=== PATIENT | male | born 1980 | race Caucasian/White ===

== ENCOUNTER 2019-05-26 18:26 | Emergency (ER) | payer BC ==
--- NOTE | 2019-05-26 18:56 | ED Physician Documentation ---
PD HPI LOWER EXT INJURY - Stated complaint Stated Complaint: RT KNEE AND ANKLE PX - Chief complaint Chief Complaint: Ext Problem - History obtained from History obtained from: Patient - History of Present Illness PD HPI LOW EXT INJURY LOCATION: Right, Lower leg, Ankle Type of injury: Twist Where injury occurred: Home Timing - onset: How many weeks ago (1) Timing - duration: Weeks (1) Timing - details: Abrupt onset Pain level max: 6 Pain level now: 5 Improved by: Rest, Ice, Immobilization Worsened by: Moving, Palpating Associated symptoms: No: Weakness, Numbness, Tingling, Swelling Contributing factors: No: Anticoagulated Recently seen: Clinic (Seen in the clinic for same, states not improving. States his right ankle twisted inward and he has having pain up by his knee all the way down to his ankle. States swollen as well. Worse with movement and better with rest) Review of Systems Constitutional: denies: Fever, Chills, Myalgias Ears: denies: Ear pain Nose: denies: Rhinorrhea / runny nose, Congestion Throat: denies: Sore throat Cardiac: denies: Chest pain / pressure Respiratory: denies: Cough GI: denies: Vomiting, Diarrhea : denies: Dysuria, Frequency Skin: denies: Rash Musculoskeletal: denies: Neck pain, Back pain Neurologic: denies: Headache PD PAST MEDICAL HISTORY - Past Medical History Past Medical History: No - Past Surgical History Past Surgical History: Yes - Present Medications Home Medications: Ambulatory Orders Medication Instructions Recorded Confirmed Azithromycin [Zithromax] 250 mg PO DAILY #6 tablet 08/23/15 - Allergies Allergies/Adverse Reactions: Allergies Allergy/AdvReac Type Severity Reaction Status Date / Time No Known Drug Allergies Allergy Verified 05/26/19 18:34 - Living Situation Living Arrangement: reports: At home - Social History Does the pt smoke?: Yes Smoking Status: Current every day smoker Does the pt drink ETOH?: Yes Does the pt have substance abuse?: No - Immunizations Immunizations are current?: Yes PD ED PE NORMAL - Vitals Vital signs reviewed: Yes - General General: Alert and oriented X 3, No acute distress - HEENT HEENT: Moist mucous membranes - Neck Neck: Supple, no meningeal sign - Derm Derm: Warm and dry - Extremities Extremities: Other (Tender to palpation over the proximal fibula of the right lower extremity as well of the right ankle. Neurovascular intact. Mild s welling. Normal examination of the foot.) - Neuro Neuro: Alert and oriented X 3 Results - Vitals Vitals: Vital Signs - 24 hr 05/26/19 18:29 Temperature 36.9 C Heart Rate 88 Respiratory 17 Rate Blood Pressure 150/90 H O2 Saturation 98 Oxygen O2 Source Room air - Rads (name of study) R tib fib xray Radiology: Prelim report reviewed, EMP read contemporaneously, See rad report (Fractured proximal fibular metaphysis. No other fractures are identified. ) R ankle xray Radiology: Prelim report reviewed, EMP read contemporaneously, See rad report (Diffuse soft tissue swelling, no ankle fracture. ) Procedures - Splint (location) R LE Splint applied by: Physician, Tech Type of splint: Fiberglass, Long leg, Posterior Other: Patient tolerated well, No complications, Neurovascular intact, Crutches provided PD MEDICAL DECISION MAKING - ED course Complexity details: reviewed results, re-evaluated patient, considered differential, d/w patient ED course: 39-year-old male with a proximal fibula fracture on x-ray. Placed in a long-leg posterior splint. Neurovascularly intact. Will provide crutches for home. He will follow-up with orthopedics for further care. Patient counseled regarding signs and symptoms for which I believe and urgent re-evaluation would be necessary. Patient with good understanding of and agreement to plan and is comfortable going home at this time This document was made in part using voice recognition software. While efforts are made to proofread this document, sound alike and grammatical errors may occur. Departure - Departure Disposition: 01 Home, Self Care Clinical Impression: Fracture of proximal end of fibula Qualifiers: Encounter type: initial encounter Fracture type: closed Fracture morphology: unspecified fracture morphology Laterality: right Qualified Code(s): S82.831A - Other fracture of upper and lower end of right fibula, initial encounter for closed fracture Condition: Good Instructions: ED Fx Lower Ext Follow-Up: [facility] [Provider Group] - Within 1 week Comments: Return if you worsen. Follow-up with orthopedics for further care. You can use Motrin or Tylenol as needed for pain. You are to be nonweightbearing. Forms: Activity restrictions
--- NOTE | 2019-05-26 19:31 | XRAY Report ---
Reason: fall, ankle pain Procedure Date: 05/26/2019 Accession Number: [id number] / [id number] Procedure: XR - Ankle 3 View RT CPT Code: Final Report FULL RESULT: EXAM: RIGHT ANKLE RADIOGRAPHY EXAM DATE: 05/26/2019 06:51 PM. CLINICAL HISTORY: Fall, ankle pain. COMPARISON: LEG LOWER RT 05/26/2019 6:50 PM. TECHNIQUE: 3 views. FINDINGS: Bones: Tiny posterior calcaneal spur. No fractures or bone lesions. Base of the fifth metatarsal is excluded from the lateral view. Joints: Normal. No effusion. No subluxations. The ankle mortise is normally aligned. Soft Tissues: Diffuse soft tissue swelling. IMPRESSION: Diffuse soft tissue swelling, no ankle fracture. RADIA
--- NOTE | 2019-05-26 19:33 | XRAY Report ---
Reason: fall, leg pain Procedure Date: 05/26/2019 Accession Number: [id number] / [id number] Procedure: XR - Tib/Fib RT CPT Code: Final Report FULL RESULT: EXAM: RIGHT TIBIA/FIBULA RADIOGRAPHY EXAM DATE: 05/26/2019 06:50 PM. CLINICAL HISTORY: Fall, leg pain. COMPARISON: None. TECHNIQUE: 2 views. FINDINGS: Bones: Slightly comminuted fracture of the proximal fibular metaphysis, minimal displacement. Tibia is intact. Joints: The visualized knee and ankle joints are normal. No effusions. Soft Tissues: Mild soft tissue swelling. IMPRESSION: Fractured proximal fibular metaphysis. No other fractures are identified. RADIA
[2019-05-26 20:29] VITALS: BP 140/88
== END 2019-05-26 20:28 | disposition home or self-care (01) ==
LOC: ED 18:26
DX: S82.831A Other fracture of upper and lower end of right fibula, initial encounter for closed fracture (principal); X50.1XXA Overexertion from prolonged static or awkward postures, initial encounter; W18.39XA Other fall on same level, initial encounter; Y92.009 Unspecified place in unspecified non-institutional (private) residence as the place of occurrence of the external cause; F17.200 Nicotine dependence, unspecified, uncomplicated
CPT/HCPCS: 29505

== ENCOUNTER 2020-01-09 12:08 | Emergency (ER) | payer BC ==
[2020-01-09] MEDS ORDERED: HYDROcod/ACETAM 5/325 MG TABLET PO STA (12:56)
--- NOTE | 2020-01-09 12:58 | ED Physician Documentation ---
PD HPI UPPER EXT INJURY - Stated complaint Stated Complaint: SHOULDER PAIN, FALL - Chief complaint Chief Complaint: Ext Problem - History obtained from History obtained from: Patient - History of Present Illness Location: Left, Shoulder Type of injury: Fall Where injury occurred: Home Timing - onset: Yesterday Timing - details: Abrupt onset Pain level max: 8 Pain level now: 8 Improved by: Rest, Ice, Immobilization Worsened by: Moving, Palpating Associated symptoms: Swelling, Discolored (Ecchymosis). No: Weakness, Numbness, Tingling - Additonal information Additional information: 39-year-old male presents to the emergency department stating that he was getting out of the shower yesterday when he slipped fell and landed hitting the edge of the tub on his left shoulder. States the pain is gradually worsened since that time. Worse with movement and better with rest. Has not taken anything for pain. No head, neck, back pain. No numbness or tingling. No difficulty breathing. Review of Systems Ten Systems: 10 systems reviewed and negative Constitutional: denies: Fever, Chills Respiratory: denies: Cough GI: denies: Nausea, Vomiting, Diarrhea Skin: denies: Rash Musculoskeletal: denies: Neck pain, Back pain Neurologic: denies: Focal weakness, Numbness, Headache, Head injury PD PAST MEDICAL HISTORY - Past Medical History Past Medical History: No - Past Surgical History Past Surgical History: Yes - Present Medications Home Medications: Ambulatory Orders Medication Instructions Recorded Confirmed Azithromycin [Zithromax] 250 mg PO DAILY #6 tablet 08/23/15 Oxycodone HCl/Acetaminophen 1 - 2 each PO Q6H PRN #14 tablet 01/09/20 [Percocet 5-325 mg Tablet] - Allergies Allergies/Adverse Reactions: Allergies Allergy/AdvReac Type Severity Reaction Status Date / Time No Known Drug Allergies Allergy Verified 01/09/20 12:30 - Living Situation Living Arrangement: reports: At home - Social History Does the pt smoke?: Yes Smoking Status: Current every day smoker Does the pt drink ETOH?: Yes Does the pt have substance abuse?: No - Immunizations Immunizations are current?: Yes - POLST Patient has POLST: No PD ED PE NORMAL - Vitals Vital signs reviewed: Yes - General General: Alert and oriented X 3, No acute distress - HEENT HEENT: Atraumatic, PERRL, Moist mucous membranes - Neck Neck: Supple, no meningeal sign, No bony TTP - Cardiac Cardiac: RRR - Respiratory Respiratory: No respiratory distress, Clear bilaterally - Derm Derm: Warm and dry - Extremities Extremities: Other - Neuro Neuro: Alert and oriented X 3 - Psych Psych: Normal mood, Normal affect - Free text exam Free text exam: Left shoulder - Tenderness to palpation over the AC joint. There is swelling and ecchymosis at the site as well. No tenderness over the proximal clavicle. Does have some tenderness around the glenohumeral joint, exam limited secondary to pain. Motion limited secondary to pain. Neurovascular intact. No crepitus over the left-sided ribs. No rib tenderness. 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 Discussed the case and reviewed the images with orthopedics, Dr. Morgan who recommends placing the patient in a sling, pain control and follow-up in clinic. Patient is neurovascular intact including the axillary nerve. Patient counseled regarding signs and symptoms for which I believe and urgent re-evaluation would be necessary. Patient with good understanding of and agreement to plan and is comfortable going home at this time This document was made in part using voice recognition software. While efforts are made to proofread this document, sound alike and grammatical errors may occur. Comminuted, impacted fracture of the left humeral neck, with moderate to prominent displacement of fracture fragments. No glenohumeral dislocation is detected. Departure - Departure Disposition: 01 Home, Self Care Clinical Impression: Humerus fracture Qualifiers: Encounter type: initial encounter Humerus Location: proximal Fracture type: closed Fracture alignment: displaced Laterality: left Condition: Good Instructions: ED Fx Upper Ext Follow-Up: [facility] [Provider Group] - Within 1 week Prescriptions: Oxycodone HCl/Acetaminophen [Percocet 5-325 mg Tablet] 1 - 2 each PO Q6H PRN #14 tablet PRN Reason: pain Comments: Return if you worsen. Follow-up with orthopedics this week for repeat evaluation. You are to stay in the sling. I spoke with Dr. Morgan from orthopedics today Do not drink alcohol or drive while on narcotic pain medicine. Note that many narcotic pain relievers also contain tylenol/acetaminophen. Please ensure that your total dose of acetaminophen from all sources does not exceed 3 grams (3000mg) per day. You may constipated on this medication, take a stool softener such as "Colace" twice a day while you are on it. Also recommend a mozh-iqu-njckump laxative such as senna or MiraLAX any day that you do not have a bowel movement. If you received narcotic pain medication in the emergency department, do not drive or operate machinery for the next 24 hours. Forms: Activity restrictions
--- NOTE | 2020-01-09 13:34 | XRAY Report ---
PROCEDURE: Shoulder 3 View LT INDICATIONS: trauma TECHNIQUE: 3 views of the shoulder were acquired. COMPARISON: None FINDINGS: Bones: There is an impacted, comminuted fracture of the left humeral neck. There is moderate to prom inent displacement of the fracture fragments. No glenohumeral dislocation can be seen. No additional fractures are detected. The visualized ribs appear intact. No suspicious lytic or blast ic lesions are seen. Soft tissues: No suspicious soft tissue calcifications. The visualized lung demonstrates a normal a ppearance. IMPRESSION: Comminuted, impacted fracture of the left humeral neck, with moderate to prominent displacement of fr acture fragments. No glenohumeral dislocation is detected. Reviewed by: Ck Tang MD on 01/09/2020 12:33 PM RISSA Approved by: Ck Tang MD on 01/09/2020 12:33 PM RISSA Station ID: [id number]
[2020-01-09] MEDS ORDERED: oxyCODONE 5 MG TABLET PO STA (14:24)
--- NOTE | 2020-01-09 14:26 | XRAY Report ---
PROCEDURE: Shoulder 1 View LT INDICATIONS: ortho requests repeat scapular Y TECHNIQUE: 1 view of the shoulder was acquired. COMPARISON: Correlation is made with the prior shoulder radiographs, 01/09/2020 FINDINGS: Bones: On this repeat scapular Y view, the left humeral head appears mildly dislocated posteriorly in relation to the glenoid fossa. A moderately displaced, comminuted, impacted humeral neck fracture is again seen. Soft tissues: No suspicious soft tissue calcifications. IMPRESSION: On this repeat scapular Y view, the left humeral head appears mildly dislocated posterio rly relation to the glenoid fossa. If it would be helpful for clinical management decision making, please consider a dedicated shoulder CT for further evaluation. Reviewed by: Ck Tang MD on 01/09/2020 1:25 PM RISSA Approved by: Ck Tang MD on 01/09/2020 1:25 PM RISSA Station ID: [id number]
[2020-01-09 14:36] VITALS: BP 157/92
== END 2020-01-09 14:49 | disposition home or self-care (01) ==
LOC: ED 12:08
DX: S42.202A Unspecified fracture of upper end of left humerus, initial encounter for closed fracture (principal); W01.198A Fall on same level from slipping, tripping and stumbling with subsequent striking against other object, initial encounter; Y93.E1 Activity, personal bathing and showering; Y92.002 Bathroom of unspecified non-institutional (private) residence as the place of occurrence of the external cause; F17.200 Nicotine dependence, unspecified, uncomplicated
CPT/HCPCS: 73020; 73030; 99283; 99284; A9270

== ENCOUNTER 2020-01-14 11:05 | Outpatient (CLI) | payer BC | END 2020-01-14 23:59 | disposition home or self-care (01) | LOC: LAB.R 11:05 | PROVIDERS: ATTEND Orthopaedic Surgery | DX: Z01.818 Encounter for other preprocedural examination (principal); Z20.828 Contact with and (suspected) exposure to other viral communicable diseases ==

== ENCOUNTER 2020-01-19 06:47 | Day surgery (SDC) | payer BC ==
[2020-01-19] MEDS ORDERED: PROPOFOL 200 MG/20 ML VIAL IVP ONE (06:48)
[2020-01-19] MEDS ORDERED: ALBUTEROL 6.7 GM INHALER INH ONE (06:48)
[2020-01-19] MEDS ORDERED: ONDANSETRON 4 MG/2 ML VIAL IVP ONE (06:48)
[2020-01-19] MEDS ORDERED: fentaNYL 100 MCG/2 ML VIAL IVP ONE (06:48)
[2020-01-19] MEDS ORDERED: TRANEXAMIC ACID 1,000 MG/10 ML VIAL IV ONE (06:48)
[2020-01-19] MEDS ORDERED: KETOROLAC 30 MG/ML VIAL IVP ONE (06:48)
[2020-01-19] MEDS ORDERED: ePHEDrine 50 MG/ML VIAL IVP ONE (06:48)
[2020-01-19] MEDS ORDERED: HYDROmorphone 1 MG/ML CARPUJECT IVP ONE (06:48)
[2020-01-19] MEDS ORDERED: MIDAZOLAM 2 MG/2 ML VIAL IVP ONE (06:48)
[2020-01-19] MEDS ORDERED: ROCURONIUM 50 MG/5 ML VIAL IVP ONE (06:48)
[2020-01-19] MEDS ORDERED: ACETAMINOPHEN 1,000 MG/100 ML 100 ML IV ONE ×2 (06:48→07:23)
[2020-01-19] MEDS ORDERED: LACTATED RINGERS 1,000 ML IV ONE ×2 (06:57→14:07)
[2020-01-19] MEDS ORDERED: GABAPENTIN 400 MG CAPSULE ONE (07:22)
[2020-01-19] MEDS ORDERED: CELECOXIB 100 MG CAPSULE PO ONE (07:23)
[2020-01-19] MEDS ORDERED: CEFAZOLIN SODIUM IN 0.9 % NACL 2 GM/100 ML BAG IV ONE (07:23)
[2020-01-19 07:43] LABS: BASOPHILS # (AUTO) 0.1 10^3/uL (0.0-0.1); BASOPHILS % (AUTO) 1.6 %; EOSINOPHILS # (AUTO) 0.2 10^3/uL (0.0-0.7); EOSINOPHILS % (AUTO) 3.9 %; HGB - HEMOGLOBIN 13.4 g/dL (14.0-18.0); LYMPHOCYTES # (AUTO) 1.3 10^3/uL (1.5-3.5); LYMPHOCYTES % (AUTO) 25.5 %; MEAN CORPUSCULAR HGB CONC 33.3 g/dL (32.0-36.0); MEAN PLATELET VOLUME 9.8 fL (7.4-11.4); MONOCYTES # (AUTO) 0.7 10^3/uL (0.0-1.0); MONOCYTES % (AUTO) 14.7 %; NEUTROPHILS # (AUTO) 2.6 10^3/uL (1.5-6.6); NEUTROPHILS % (AUTO) 53.9 %; PLT - PLATELET COUNT 298 10^3/uL (130-450); RED BLOOD COUNT 3.94 10^6/uL (4.70-6.10); RED CELL DISTRIBUTION WIDTH 12.5 % (12.0-15.0); WHITE BLOOD COUNT 4.9 x10^3/uL (4.8-10.8)
--- NOTE | 2020-01-19 07:45 | ANESTHESIA ---
Pre-Anesthesia VS, & Labs - Diagnosis Left displaced proximal humerus fracture - Procedure ORIF left humerus Vital Signs: Temp Pulse Resp BP Pulse Ox 37.1 C 73 12 123/82 H 97 01/19/20 06:57 01/19/20 06:57 01/19/20 06:57 01/19/20 06:57 01/19/20 06:57 Height: 5 ft 10 in Weight (kg): 97.9 kg Body Mass Index: 30.9 BMI Classification: Obese - NPO >8 hours - Lab Results Current Lab Results: Laboratory Tests 01/19/20 07:17: POC Whole Bld Glucose 93 Home Medications and Allergies Home Medications: Ambulatory Orders Ibuprofen [Motrin] 600 mg PO Q6H PRN 01/17/20 lisinopriL [Lisinopril] 5 mg PO DAILY 01/17/20 Ibuprofen [Motrin] 600 mg PO Q6H PRN 01/17/20 lisinopriL [Lisinopril] 5 mg PO DAILY 01/17/20 Allergies/Adverse Reactions: Allergies Allergy/AdvReac Type Severity Reaction Status Date / Time No Known Drug Allergies Allergy Verified 01/09/20 12:30 Anes History & Medical History - Anesthetic History Family history of Anesthesia Complications: Denies Family history of Malignant Hyperthermia: Denies - Medical History Cardiovascular: reports: Hypertension Pulmonary: reports: Asthma (childhood), Sleep apnea (snores) Gastrointestinal: reports: None Urinary: reports: None Neuro: reports: Head injury (Post traumatic brain disorder) Musculoskeletal: reports: None Endocrine/Autoimmune: reports: None Blood Disorders: reports: None Skin: reports: None Smoking Status: Current every day smoker Psychosocial: reports: Depression, Anxiety, Cannabis (daily), Other (PTSD) Exam General: Alert, Oriented x3, Cooperative, No acute distress Dental: WNL, Other (chipped front tooth) Mouth Openin Fingerbreadth Neck Mobility: Normal Mallampati classification: II Thyromental Distance: greater than 6 cm Respiratory: Lungs clear, Normal breath sounds, No respiratory distress, No accessory muscle use Cardiovascular: Regular rate, Normal S1, Normal S2, No murmurs Mental/Cognitive Status: Alert/Oriented X3, Normal for patient Plan Anesthesia Type: Supraclavicular Block (left) Regional Block: Per Surgeon's request for Post Op pain control Consent for Procedure(s) Verified and Reviewed: Yes Code Status: Attempt Resuscitation ASA classification: 2-Mild systemic disease Is this case an emergency?: No
[2020-01-19] MEDS ORDERED: ONDANSETRON 4 MG/2 ML VIAL IVP PRN (13:34)
[2020-01-19] MEDS ORDERED: MORPHINE 2 MG/ML CARPUJECT IVP PRN (13:34)
[2020-01-19] MEDS ORDERED: NALOXONE 0.4 MG/ML VIAL IVP PRN (13:34)
[2020-01-19] MEDS ORDERED: HYDROmorphone 0.5 MG/0.5 ML SYRINGE IVP PRN (13:34)
[2020-01-19] MEDS ORDERED: fentaNYL 100 MCG/2 ML VIAL IVP PRN (13:34)
[2020-01-19] MEDS ORDERED: ATROPINE ABBOJECT 1 MG/10 ML SYRINGE IVP PRN (13:34)
--- NOTE | 2020-01-19 13:54 | OPERATIVE REPORT ---
Operative Report - General Procedure Date: 01/19/20 Planned Procedure: Open reduction internal fixation proximal humerus left shoulder Pre-Op Diagnosis: Displaced proximal humerus fracture left shoulder Procedure Performed: Open reduction internal fixation proximal humerus left shoulder using Stephens nephew proximal humeral 3-hole locking plate Post Op Diagnosis: Same as preoperative diagnosis. - Procedure Note Primary Surgeon: Renny Ibarra MD Secondary Surgeon: NIA Garza Anesthesia Provider: Carlos Rosenthal Anesthesia Technique: General ET tube, Regional block Estimated Blood Loss (mL): 200 Indications: This is a 39-year-old who took a fall 12 days ago at home when he slipped trying to get out of the bathroom and landed on his left shoulder. He was seen approximately a week after injury orthopedic clinic. His x-rays showed a displaced 2 part fracture. 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 He had tenderness, limited motion to left shoulder, no neurovascular deficit. Findings: The fracture was transverse and was relatively high in the neck of the humerus with a medial spike of bone extending into the metaphysis distally. Is the greater tuberosity was displaced as well and this was not visualized as well on preop x-rays. The rotator cuff was intact. The biceps tendon was pierced by a spike of bone from the distal shaft fragment.The glenohumeral joint was stable. Complications: None noted - Other Other Information/Narrative: The patient was brought to theOperating room table and was placed in a beachchair positioner at about 40 degrees. Care was taken to protect his head and put the neck in a neutral position with the appropriate facemask. Sequential compression device was applied to both lower extremities. Bolsters were placed beneath his thighs. The left shoulder and upper extremity were prepped and draped in a sterile manner in the usual fashion. The left upper extremity was draped free. A Parker stand had been covered with a sterile drape. The C arm was covered with sterile drape as well.We tried to rehearse C arm positioning to obtain AP and axillary as well as rotational views before the prepping and draping. A timeout procedure was performed by the entire operating room team and all were in agreement. A deltopectoral incision was made beginning at the clavicle, extending lateral to the coracoid onto the deltoid insertion. The cephalic vein was identified proximally, protected and retracted medially. The subacromial space was mobilized by abducting the arm and retracting the deltoid with a Bello retractor. The clavipectoral fascia had already been released and the coracoid muscles were retracted medially with the pectoralis. The shaft fracture fragment had been rotated with the spike protruding through the biceps tendon. Stay sutures were placed into the rotator cuff using #1 Vicryl. 6 strands of suture replaced through the cuff to help mobilize the head. Longitudinal traction external rotation and manipulation of the head traction sutures were performed. Because the fracture was relatively high in transverse it was hard to place K wires directly perpendicular to the fracture. For this reason a temporary small plate was applied anteriorly and this stabilized the fracture enough so I could rotate the shoulder and apply the lateral positions proximal humeral locking plate. The fracture seem to impact. The fracture seem to be stable with temporary fixation. The head fragment seemed to be on radiographs somewhat medial to shaft. There was some callus formation about the greater tuberosity and this was easily freed. Obtaining a good lateral or axillary was difficult. The proximal end of the plate was placed distal to the rotator cuff and tuberosity. K wires were inserted to the proximal end of the plate and were within the head. Once the proximal anatomic humeral plate had been applied, the anterior temporary plate fixation was remove d.The C arm was used intermittently throughout procedure. Locking screws were placed into the head and nonlocking screws into the shaft. When inserting the screws screws for the head, only the lateral cortex was drilled and a depth gauge was used to palpate the bone proximally. Most of the screw lengths were about 5 mm less than the actual depth gauge measurement. There seemed to be good fixation clinically. The fracture was stable and there was no motion at the fracture site with range of motion and rotation. The x-ray showed satisfactory but not anatomic alignment. The screws were well within the head. There was no block to motion or crepitus to motion of the shoulder. The biceps was tenodesed to the pectoralis with #1 Vicryl. The wound was irrigated with saline and also dilute Betadine. The deltopectoral interval was closed with 0 Vicryl, the subcutaneous tissue with 2-0 Vicryl and the skin with a running 3-0 Monocryl subcuticular suture. Dermabond was applied and a silver impregnated dressing also utilized. A sling was applied. He received 2 g of Ancef before the incision and 2 g of Ancef during the procedure. He tolerated the procedure well. A physician printing assistant was utilized during this procedure to help with positioning, draping, retraction and to facilitate reduction and fixation of the fracture.
[2020-01-19] MEDS ORDERED: LACTATED RINGERS 1,000 ML IV SCH (14:00)
[2020-01-19] MEDS ORDERED: HYDROcod/ACETAM 5/325 MG TABLET PO PRN (14:15)
[2020-01-19] MEDS ORDERED: HYDROcod/ACETAM 10 MG/325 MG TABLET PO PRN (14:15)
[2020-01-19] MEDS ORDERED: KETOROLAC 15 MG/ML VIAL IVP STA (14:15)
--- NOTE | 2020-01-19 14:19 | ANESTHESIA POST OP EVALUATION ---
Anesthesia Post Eval - Post Anesthesia Eval Vitals: Last Vital Signs Temp 37.3 C 01/19/20 14:04 Pulse 101 H 01/19/20 14:10 Resp 12 01/19/20 14:10 BP 127/81 H 01/19/20 14:10 Pulse Ox 95 01/19/20 14:10 CV Function Including HR & BP: positive: Stable Pain Control: positive: Satisfactory Nausea & Vomiting: positive: Negative Mental Status: positive: Baseline Respiratory Status: Airway Patent Hydration Status: Satisfactory Anesthesia Complications: positive: None
[2020-01-19] MEDS ORDERED: HYDROcod/ACETAM 5/325 MG TABLET ONE (14:56)
[2020-01-19 15:08] VITALS: BP 104/64
--- NOTE | 2020-01-19 15:42 | XRAY Report ---
PROCEDURE: OR C-Arm Procedure INDICATIONS: ORIF PROXIMAL HUMERUS TECHNIQUE: 3 intraoperative fluoroscopic images of left shoulder/proximal humerus were obtained. COMPARISON: Shoulder radiograph dated 01/09/2020. FINDINGS: Intraoperative fluoroscopic images of left shoulder shows internal fixation of previously noted impac saniya proximal humeral neck fracture. IMPRESSION: Fluoroscopy guidance was provided intraoperatively for internal fixation of proximal humeral shaft. Reviewed by: Rafael Tee MD on 01/19/2020 2:41 PM AKAUDREY Approved by: Rafael Tee MD on 01/19/2020 2:41 PM AKDT Station ID: [id number]
== END 2020-01-19 06:48 | disposition home or self-care (01) ==
LOC: SDS 06:47
PROVIDERS: ATTEND Orthopaedic Surgery
PROC: 0PSD0ZZ Reposition Left Humeral Head, Open Approach (ICD-10-PCS; principal; 2020-01-19 08:00)
DX: S42.222A 2-part displaced fracture of surgical neck of left humerus, initial encounter for closed fracture (principal); W18.2XXA Fall in (into) shower or empty bathtub, initial encounter; Y93.E1 Activity, personal bathing and showering; Y92.002 Bathroom of unspecified non-institutional (private) residence as the place of occurrence of the external cause; I10 Essential (primary) hypertension; G47.30 Sleep apnea, unspecified; F17.210 Nicotine dependence, cigarettes, uncomplicated; F41.9 Anxiety disorder, unspecified; F43.10 Post-traumatic stress disorder, unspecified; Z72.89 Other problems related to lifestyle; Z87.820 Personal history of traumatic brain injury
CPT/HCPCS: 23615; 85025; A9270; J0131; J0690; J1170; J7120; J7613

== ENCOUNTER 2020-02-25 08:00 | Outpatient (CLI) | payer BC ==
--- NOTE | 2020-02-25 16:24 | XRAY Report ---
PROCEDURE: Shoulder 3 View LT INDICATIONS: LEFT HUMERUS FRACTURE TECHNIQUE: 4 views of the shoulder were acquired. COMPARISON: Left shoulder radiographs dated 01/09/2020 FINDINGS: Bones: Postsurgical changes are seen from fixation of the previously seen proximal humeral fracture w ith metallic plate and screw construct. A lucent fracture line is visualized at the humeral neck. Per iosteal reaction and callus formation is seen at the posterior medial aspect of the fracture line. Soft tissues: No suspicious soft tissue calcifications. IMPRESSION: Postsurgical changes from fixation of a previously seen proximal humeral fracture with p rogressive healing changes. Reviewed by: Rodrigue Belle MD on 02/25/2020 4:22 PM PST Approved by: Rodrigue Belle MD on 02/25/2020 4:22 PM PST Station ID: [id number]
== END 2020-02-25 23:59 | disposition home or self-care (01) ==
LOC: DI.WCP 08:00
PROVIDERS: ATTEND Orthopaedic Surgery
DX: S42.222D 2-part displaced fracture of surgical neck of left humerus, subsequent encounter for fracture with routine healing (principal)

== ENCOUNTER 2020-04-24 11:33 | Outpatient (CLI) | payer BC ==
--- NOTE | 2020-04-24 12:27 | XRAY Report ---
PROCEDURE: Shoulder 3 View LT INDICATIONS: 2 PART DISPLACED FX OF NECK OF L HUMERUS TECHNIQUE: 4 views of the shoulder were acquired. COMPARISON: 01/09/2020 . FINDINGS: Bones: Prior internal fixation of proximal humeral shaft and humeral head is seen with near anatomic shoulder alignment. No gross hardware loosening or failure. Healing at comminuted proximal humeral fr acture site is seen. No new fracture or dislocation. No suspicious bony lesions. Visualized ribs oksana ear intact. Soft tissues: No suspicious soft tissue calcifications. IMPRESSION: Healing proximal humeral shaft/head fracture with near anatomic shoulder alignment. No g ross hardware complication. Reviewed by: Rafael Tee MD on 04/24/2020 12:25 PM PST Approved by: Rafael Tee MD on 04/24/2020 12:25 PM PST Station ID: [id number]
== END 2020-04-24 23:59 | disposition home or self-care (01) ==
LOC: DI.N 11:33
PROVIDERS: ATTEND Physician Assistant
DX: S42.302D Unspecified fracture of shaft of humerus, left arm, subsequent encounter for fracture with routine healing (principal)

== ENCOUNTER 2021-03-30 14:09 | Outpatient (CLI) | payer BC | END 2021-03-30 23:59 | disposition home or self-care (01) | LOC: LAB.N 14:09 | PROVIDERS: ATTEND Family Medicine | DX: R05.9 Cough, unspecified (principal); Z20.822 Contact with and (suspected) exposure to COVID-19 | CPT/HCPCS: 87275; 87276 ==

== ENCOUNTER 2021-08-04 08:00 | Outpatient (CLI) | payer BC ==
[2021-08-04 16:58] LABS: BASOPHILS # (AUTO) 0.1 10^3/uL (0.0-0.1); BASOPHILS % (AUTO) 1.4 %; EOSINOPHILS # (AUTO) 0.1 10^3/uL (0.0-0.7); HCT - HEMATOCRIT 44.2 % (42.0-52.0); HGB - HEMOGLOBIN 14.9 g/dL (14.0-18.0); LYMPHOCYTES # (AUTO) 1.8 10^3/uL (1.5-3.5); LYMPHOCYTES % (AUTO) 35.1 %; MEAN CORPUSCULAR HEMOGLOBIN 34.2 pg (27.0-31.0); MEAN CORPUSCULAR HGB CONC 33.7 g/dL (32.0-36.0); MEAN CORPUSCULAR VOLUME 101.4 fL (80.0-94.0); MEAN PLATELET VOLUME 10.3 fL (7.4-11.4); MONOCYTES # (AUTO) 0.4 10^3/uL (0.0-1.0); MONOCYTES % (AUTO) 7.8 %; NEUTROPHILS # (AUTO) 2.7 10^3/uL (1.5-6.6); NEUTROPHILS % (AUTO) 54.3 %; PLT - PLATELET COUNT 229 10^3/uL (130-450); RED BLOOD COUNT 4.36 10^6/uL (4.70-6.10); RED CELL DISTRIBUTION WIDTH 13.2 % (12.0-15.0)
[2021-08-04 17:08] LABS: ALBUMIN 4.4 g/dL (3.2-5.5); ALBUMIN/GLOBULIN RATIO 1.2 (1.0-2.2); BILIRUBIN,TOTAL 0.5 mg/dL (0.2-1.0); CREATININE 0.6 mg/dL (0.6-1.2); TOTAL PROTEIN 8.1 g/dL (6.7-8.2)
== END 2021-08-04 08:01 | disposition home or self-care (01) ==
LOC: LAB.N 08:00
PROVIDERS: ATTEND Physician Assistant Medical
DX: R55 Syncope and collapse (principal)
CPT/HCPCS: 36415; 80053; 84443; 85025

== ENCOUNTER 2021-08-04 13:22 | Outpatient (CLI) | payer BC ==
--- NOTE | 2021-08-04 17:05 | XRAY Report ---
PROCEDURE: Chest 2 View X-Ray INDICATIONS: COUGH TECHNIQUE: 2 view(s) of the chest. COMPARISON: Correlation is made with left shoulder plain films, 04/24/2020 FINDINGS: Surgical changes and devices: Cervical change of the left proximal humerus is partially seen.. Lungs and pleura: No pleural effusions or pneumothorax. Lungs are clear. Mediastinum: Mediastinal contours are normal. Heart size is normal. Bones and chest wall: No suspicious bony abnormalities. Soft tissues appear unremarkable. IMPRESSION: Clear lungs, without infiltrates. Reviewed by: Ck Tang MD on 08/04/2021 4:04 PM RISSA Approved by: Ck Tang MD on 08/04/2021 4:04 PM RISSA Station ID: [id number]
== END 2021-08-04 13:23 | disposition home or self-care (01) ==
LOC: DI.N 13:22
PROVIDERS: ATTEND Physician Assistant Medical
DX: R05.9 Cough, unspecified (principal); R55 Syncope and collapse
CPT/HCPCS: 36415; 80053; 84443; 85025

== ENCOUNTER 2025-03-31 15:30 | Inpatient (IN) ==
--- OUTSIDE RECORDS SUMMARY | 2025-03-31 15:40 | EXTERNAL MEDICAL SUMMARY RPT | Continuity of Care Document ---
Author Organization [place] Address [address] [address] Phone Allergies and Intolerances date description facility reaction severity 2024-09-22 10:00 [id number]^No Known Drug Allergies^^No Known Drug Allergies^^allergy.id [facility] (no reaction) (no severity) 2025-02-23 10:00 [id number]^No Known Drug Allergies^^No Known Drug Allergies^^allergy.id [facility] (no reaction) (no severity) Problems date description facility 2025-02-23 09:14 Pain in right leg [employer] [facility] 2025-02-23 09:14 Elevated blood-press ure reading, without diagnosis of hypertension [facility] 2025-03-15 16:[address] [facility] 2025-03-15 16:13 Low back pain, unspecified [employer] 2025-03-15 16:13 Pain in thoracic spine [facility] 2025-03-15 16:13 Paresthesia of skin [facility] 2025-03-15 16:13 Difficulty in walking, not else where classified [facility] 2025-03-15 16:13 Apraxia [facility] 2025-03-15 16:[address] [facility] 2025-03-15 16:13 Personal history of traumatic b rain injury [facility] 2025-03-15 16:[address] [facility] 2025-03-15 16:14 Low back pain, unspecified [employer] 2025-03-15 16:14 Pain in thoracic spine [facility] 2025-03-15 16:14 Paresthesia of skin [facility] 2025-03-15 16:14 Difficulty in walking, not else where classified [facility] 2025-03-15 16:14 Apraxia [facility] 2025-03-15 16:14 Weakness [facility] 2025-03-15 16:14 Personal history of traumatic b rain injury [facility] 2025-03-16 09:18 Cervicalgia [facility] 2025-03-16 09:18 Low back pain, unspecified [facility] 2025-03-16 09:18 Pain in thoracic spine [facility] 2025-03-16 09:18 Paresthesia of skin [facility] 2025-03-16 09:18 Difficulty in walking, not else where classified [facility] 2025-03-16 09:18 Apraxia [facility] 2025-03-16 09:18 Weakness [facility] 2025-03-16 09:18 Personal history of traumatic b rain injury [facility] 2025-03-28 10:08 Other abnormality of red blood cells [facility] 2025-03-28 10:08 Elevation of levels of liver tr ansaminase levels [facility] Social History date description facility
--- NOTE | 2025-03-31 15:57 | ED Physician Documentation ---
History of Present Illness Stated complaint Stated Complaint: CONFUSION, SLURRING Chief complaint Chief Complaint: Neuro History obtained from History obtained from: Patient and Family Additonal information Additional information: 45-year-old gentleman presents accompanied by son by private vehicle. He has a history of what sounds like pretty severe alcoholism and TBI with intermittent speech issues and unsteadiness on his feet pain of chronically. He says 2 weeks ago, his son says about 5 or 6 days ago he quit drinking. He says he was doing fine for the first couple of days but since then for the last few days has had severe slurred speech, is picking at things, confused, hallucinating, cannot walk due to unsteadiness and is jaundiced. Meds/Allgy Home Medications Ambulatory Orders Medication Instructions Recorded Confirmed ibuprofen 600 mg tablet 600 mg PO Q6H PRN Pain 01/1604/10/24 Held on 02/23/25. Instructions: Per Patient lisinopril 5 mg tablet 5 mg PO DAILY 01/17/2001/18 Held on 02/23/25. Instructions: Per Patient oxycodone 5 mg tablet 5 mg PO Q4-6H Pain #20 tabs 01/19/20 Held on 02/23/25. Instructions: Per Patient metoprolol succinate 50 mg 50 mg PO DAILY #30 tabs 04/10/24 tablet,extended release 24 hr Held on 02/23/25. Instructions: Per Patient potassium chloride 20 mEq 20 meq PO BID #10 tabs 04/0604/10/24 tablet,extended release(part/cryst) Held on 02/23/25. Instructions: Per Patient diclofenac potassium 50 mg tablet 50 mg PO TID PRN monica n #30 tabs 02/23/25 02/23/25 Allergies Allergies Allergy/AdvReac Type Severity Reaction Status Date / Time No Known Drug Allergies Allergy Verified 03/31/25 15:46 PFSH Active Problems All Active Problems (Updated 03/31/25 @ 17:00 by Orville Gaona MD) Acute alcoholic hepatitis (Acute) Hypomagnesemia (Acute) Hepatic encephalopathy (Acute) Elevated blood pressure reading (Acute) Lower extremity pain, right (Acute) Movement disorder (Acute) Leg cramp (Acute) Hypertension (Acute) Humerus fracture (Acute) Fracture of proximal end of fibula (Acute) Tonsillitis (Acute) Sciatica (Acute) Medical History Medical History TBI (traumatic brain injury) Social History Social History Smoking Status: Former smoker How many cigarettes a day do you smoke? (20 cigarettes=1 Pk): 2 Second hand tobacco smoke exposure: Yes Do you dip or chew tobacco?: No Do you vape?: No Living arrangement: At home Do you feel safe in your home environment?: Yes History of physical, verbal, emotional, or financial abuse?: No ETOH Use: Frequency: Occasional POLST Patient has POLST: No Exam Exam Vital Signs: Vital Signs x48h Temp Pulse Resp BP Pulse Ox 03/31/25 16:40 94 18 122/92 H 95 03/31/25 16:33 89 18 122/92 H 97 03/31/25 16:10 102 H 19 97 03/31/25 15:41 98.3 C H 120 H 18 129/91 H 96 Constitutional normal general appearance and no apparent distress He is alert and oriented. He has pretty significantly slurred and garbled speech which is hard to understand much of the history is from the son. He is somewhat agitated and hyperdynamic and tremulous. Eyes He has scleral icterus and has nystagmus horizontally and vertically. Respiratory breath sounds equal bilaterally, normal respiratory effort and clear to auscultation bilaterally Cardiovascular Tachycardic but regular without murmur Gastrointestinal Fullness in the right upper quadrant consistent with hepatomegaly but nontender Neurology Slurred speech and garbled speech, seems alert and oriented though. Tremulous and does have asterixis. Results Vitals Vitals: Vital Signs - 24 hr 03/31/25 15:41 03/31/25 16:10 03/31/25 16:33 Temperature 98.3 C H Temperature Source Oral Pulse Rate 120 H 102 H 89 Respiratory Rate 18 19 18 Blood Pressure 129/91 H 122/92 H O2 Saturation 96 97 97 O2 Source Room air Room air Room air Pain Intensity 0 6 5 03/31/25 16:40 Temperature Temperature Source Pulse Rate 94 Respiratory Rate 18 Blood Pressure 122/92 H O2 Saturation 95 O2 Source Room air Pain Intensity 5 Oxygen O2 Source Room air Labs Labs: Laboratory Tests 03/31/25 03/31/25 16:00 16:34 WBC 7.7 RBC 4.35 L Hgb 14.9 Hct 42.5 MCV 97.7 H MCH 34.3 H MCHC 35.1 RDW 12.7 Plt Count 43 L MPV 12.7 H Neut # (Auto) 5.9 Lymph # (Auto) 0.7 L Bosque # (Auto) 1.0 Eos # (Auto) 0.0 Baso # (Auto) 0.0 Absolute Nucleated RBC 0.00 Nucleated RBC % 0.0 Sodium 130 L Potassium 2.9 L Chloride 86 L Carbon Dioxide 23 Anion Gap 21.0 H BUN 8 Creatinine 0.7 Estimated GFR (MDRD) 122 Glucose 108 H Calcium 9.6 Magnesium 1.1 L Total Bilirubin 6.9 H AST 153 H ALT 86 H Alkaline Phosphatase 133 H Ammonia 80.1 H* Total Protein 7.6 Albumin 4.3 Globulin 3.3 Albumin/Globulin Ratio 1.3 Lipase 44 Acetaminophen 0.1 Ethyl Alcohol < 10.0 Rads (name of study) CT of the head is without acute disease: Relevant Findings:: Final report received and EMP independent interpretation of test (NAD) PD Medical Decision Making ED course ED course: 45-year-old gentleman presents with slurred speech, hyperdynamic, jaundice, and asterixis. He has a history of alcoholism. This could be alcohol withdrawal but I am actually more suspicious of hepatic encephalopathy given the constellation of findings. Workup demonstrates normal head CT, CBC notable mostly for thrombocytopenia worse than priors, CMP showing hypokalemia, hyponatremia, hypomagnesemia and jaundice. He has a significantly elevated ammonia level. On reexamination after 1 mg of Ativan he did look a little better. I ordered IV supplementation of magnesium and potassium and then subsequently lactulose. Spoke with Dr. Ellison for admission at 4:58 PM. INR pending on admission so I do not know his MELD score nor his discriminant function. The patient and family are counseled as to the diagnosis and need for admission. This document was made in part using voice recognition software, while efforts are made to proofread this document, sound alike an grammatical errors may occur. Discharge Plan Discharge Patient Disposition: 66 [facility] DC/Xfer Condition: Serious Clinical Impression: Hepatic encephalopathy, Hypomagnesemia, Acute alcoholic hepatitis Prescriptions: No Action lisinopril 5 MG tablet 5 mg PO DAILY ibuprofen 600 MG tablet 600 mg PO Q6H PRN (Reason: Pain) oxycodone 5 MG tablet 5 mg PO Q4-6H Qty: 20 0RF Rx Instructions: Take 1 tablet by mouth every 4-6 hours as needed for breakthrough pain potassium chloride 20 mEq tablet,ER particles/crystals 20 meq PO BID Qty: 10 2RF metoprolol succinate 50 mg tablet extended release 24 hr 50 mg PO DAILY Qty: 30 2RF diclofenac potassium 50 mg tablet 50 mg PO TID PRN (Reason: pain) Qty: 30 0RF Print Language: Irish
[2025-03-31 16:20] LABS: HCT - HEMATOCRIT 42.5 % (42.0-52.0); HGB - HEMOGLOBIN 14.9 g/dL (14.0-18.0); MEAN PLATELET VOLUME 12.7 fL (7.4-11.4); NRBC ABSOLUTE COUNT (AUTO) 0.00 x10^3/uL; NUCLEATED RED BLOOD CELLS AUTO 0.0 /100WBC; PLT - PLATELET COUNT 43 10^3/uL (130-450); RED CELL DISTRIBUTION WIDTH 12.7 % (12.0-15.0)
[2025-03-31] MEDS: SODIUM CHLORIDE 0.9% 1,000 ML IV STA (16:29)
[2025-03-31] MEDS: THIAMINE 100 MG/1 ML 2 ML MDV IVP STA (16:31)
--- NOTE | 2025-03-31 16:31 | CT Report ---
PROCEDURE: CT Head WO INDICATIONS: ams TECHNIQUE: CT of the head was performed, without intravenous contrast. Reformats: Coronal and sagittal. For radiation dose reduction, the following was used: automated exposure control, adjustment of mA and/or kV according to patient size. COMPARISON: None. FINDINGS: Image quality: Diagnostic. CSF spaces: Basal cisterns are patent. No extra-axial fluid collections. Ventricles are normal in size and shape. Brain: No midline shift. No intracranial mass effect or hemorrhage. Ackerman- white matter interface is normal. Skull and face: Calvarium and visualized facial bones are intact, without suspicious lesions. Sinuses: Visualized sinuses and mastoids are clear. IMPRESSION: No acute intracranial pathology. Reviewed by: Rafael Tee MD on 03/31/2025 4:28 PM PST Approved by: Rafael Tee MD on 03/31/2025 4:28 PM PST Station ID: [id number]
[2025-03-31] MEDS: LORazepam 2 MG/ML VIAL IVP STA (16:32)
[2025-03-31 16:36] LABS: CARBON DIOXIDE - CO2 23 mmol/L (21-32)
[2025-03-31 16:41] LABS: ETOH - ETHANOL < 10.0 mg/dL
[2025-03-31 16:44] LABS: ALT ALANINE AMINOTRANSFERASE 86 IU/L (10-60); AST ASPARTATE AMINOTRANSFERASE 153 IU/L (10-42); BUN - BLOOD UREA NITROGEN 8 mg/dL (6-20); CREATININE 0.7 mg/dL (0.6-1.3); GFR - MDRD 122 (>89)
[2025-03-31] MEDS: POTASSIUM CHLOR 10 MEQ/100 ML 10 MEQ/100 ML BAG IV STA (16:53)
[2025-03-31] MEDS: MAGNESIUM SULFATE 2 GRAM 2 GM/50 ML BAG IV ONE (16:54)
[2025-03-31 17:03] LABS: INR 1.4 (0.8-1.2); PT - PROTHROMBIN TIME 15.1 secs (9.9-12.6)
[2025-03-31 17:12] LABS: GLUCOSE, URINE (UA) NEGATIVE (NEGATIVE); KETONES,URINE (UA) 40 mg/dL (NEGATIVE); OCCULT BLOOD,URINE NEGATIVE (NEGATIVE)
--- OUTSIDE RECORDS SUMMARY | 2025-03-31 17:31 | EXTERNAL MEDICAL SUMMARY RPT | Continuity of Care Document ---
Author Organization [place] Address [address] [address] Phone Allergies and Intolerances date description facility reaction severity 2024-09-22 10:00 [id number]^No Known Drug Allergies^^No Known Drug Allergies^^allergy.id [facility] (no reaction) (no severity) 2025-02-23 10:00 [id number]^No Known Drug Allergies^^No Known Drug Allergies^^allergy.id XO1 (no reaction) (no severity) 2025-03-31 10:00 [id number]^No Known Drug Allergies^^No Known Drug Allergies^^allergy.id [facility] (no reaction) (no severity) Problems date description facility 2025-02-23 09:14 Pain in right leg [facility] 2025-02-23 09:14 Elevated blood-press ure reading, without diagnosis of hypertension [facility] 2025-03-15 16:13 Cervicalgia [facility] 2025-03-15 16:13 Low back pain, unspecified [employer] 2025-03-15 16:13 Pain in thoracic spine [facility] 2025-03-15 16:13 Paresthesia of skin [facility] 2025-03-15 16:13 Difficulty in walking, not else where classified [facility] 2025-03-15 16:13 Apraxia [facility] 2025-03-15 16:13 Weakness [facility] 2025-03-15 16:13 Personal history of traumatic b rain injury [facility] 2025-03-15 16:14 Cervicalgia [facility] 2025-03-15 16:14 Low back pain, unspecified [facility] 2025-03-15 16:14 Pain in thoracic spine [facility] 2025-03-15 16:14 Paresthesia of skin [facility] 2025-03-15 16:14 Difficulty in walking, not else where classified [facility] 2025-03-15 16:14 Apraxia [facility] 2025-03-15 16:14 Weakness [facility] 2025-03-15 16:14 Personal history of traumatic b rain injury [facility] 2025-03-16 09:18 Cervicalgia [facility] 2025-03-16 09:18 Low back pain, unspecified [facility] 2025-03-16 09:18 Pain in thoracic spine [facility] 2025-03-16 09:18 [facility] 2025-03-16 09:18 Difficulty in walking, not else where classified [facility] 2025-03-16 09:18 Apraxia [facility] 2025-03-16 09:18 Weakness [facility] 2025-03-16 09:18 Personal history of traumatic b rain [facility] 2025-03-28 10:08 Other abnormality of red blood cells [facility] 2025-03-28 10:08 Elevation of levels of liver tr ansaminase levels [employer] Results/Labs test date facility value unit notes Result panel 1 ETOH - ETHANOL 2025-03-31 16:00 [facility] 10.0 mg/dl Blood Alcohol Levels Level Sporadic Drinkers Chronic drinkers 100 mg/dL Legally intoxicated* Minimal signs 200-250 mg/dL Alertness lost, Effort needed to becoming lethargic maintain emotional and motor control 300-350 mg/dL Stupor to coma Drowsy and slow >500 mg/dL Possible Coma *The legal definition of intoxication varies. This assy is for medical decision making only. As of October 2022 testing method has changed, this may include reference ranges. NUCLEATED RED BLOOD CELLS AUTO 2025-03-31 16:00 [facility] 0.0 /100wbc (missing) BASOPHILS # (AUTO) 2025-03-31 16:00 XO1 0.0 10 3/ul (missing) EOSINOPHILS # (AUTO) 2025-03-31 16:00 XO1 0.0 10 3/ul (missing) NRBC ABSOLUTE COUNT (AUTO) 2025-03-31 16:00 XO1 0.00 x10 3/ul (missing) ACETAMINOPHEN 2025-03-31 16:00 XO1 0.1 ug/ml Acetaminophen Therapeutic concentration 10-30 ug/mLHepatotoxicity concentrations - >150 ug/mL at 4hr after ingestion >75 ug/mL at 8hr after ingestion >40 ug/mL at 12hr after ingestion As of October 2022 testing method has changed, this may include reference ranges. LYMPHOCYTES # (AUTO) 2025-03-31 16:00 XO1 0.7 10 3/ul (missing) CREATININE 2025-03-31 16:00 XO1 0.7 mg/dl As of October 2022 test ing method has changed, this may include reference ranges. MONOCYTES # (AUTO) 2025-03-31 16:00 XO1 1.0 10 3/ul (missing) MAGNESIUM 2025-03-31 16:00 XO1 1.1 mg/dl As of October 2022 test ing method has changed, this may include reference ranges. ALBUMIN/GLOBULIN RATIO 2025-03-31 16:00 XO1 1.3 (missing) (missing) GLUCOSE 2025-03-31 16:00 XO1 108 mg/dl As of October 2022 test ing method has changed, this may include reference ranges. RED CELL DISTRIBUTION WIDTH 2025-03-31 16:00 XO1 12.7 % (missing) MEAN PLATELET VOLUME 2025-03-31 16:00 XO1 12.7 fl (missing) GFR - MDRD 2025-03-31 16:00 XO1 122 (missing) The IDMS-traceable M DRD Study Equation has been validated extensively in and populations between the ages of 18 and 70 with impaired kidney function (eGFR < 60 mL/min/1.73m2) and has shown good performance for patients with all common causes of kidney disease. Although this equation has not been validated for patients older than 70, an MDRD-derived eGFR may still be a useful tool for providers caring for patients older than 70. References: http://www.nkdep.nih.gov /lab-evaluation/gfr/cole oliviertyron noemi, last updated June 2011. SODIUM 2025-03-31 16:00 XO1 130 mmol/l (missing) ALKALINE PHOSPHATASE 2025-03-31 16:00 XO1 133 iu/l As of October 2022 test ing method has changed, this may include reference ranges. HGB - HEMOGLOBIN 2025-03-31 16:00 XO1 14.9 g/dl (missing) AST ASPARTATE AMINOTRANSFERASE 2025-03-31 16:00 XO1 153 iu/l As of October 2022 test ing method has changed, this may include reference ranges. POTASSIUM 2025-03-31 16:00 XO1 2.9 mmol/l As of October 2022 test ing method has changed, this may include reference ranges. ANION GAP 2025-03-31 16:00 XO1 21.0 (missing) (missing) CARBON DIOXIDE - CO2 2025-03-31 16:00 XO1 23 mmol/l As of October 2022 test ing method has changed, this may include reference ranges. GLOBULIN 2025-03-31 16:00 XO1 3.3 g/dl (missing) MEAN CORPUSCULAR HEMOGLOBIN 2025-03-31 16:00 XO1 34.3 pg (missing) MEAN CORPUSCULAR HGB CONC 2025-03-31 16:00 XO1 35.1 g/dl (missing) ALBUMIN 2025-03-31 16:00 XO1 4.3 g/dl As of October 2022 test ing method has changed, this may include reference ranges. RED BLOOD COUNT 2025-03-31 16:00 XO1 4.35 10 6/ul (missing) HCT - HEMATOCRIT 2025-03-31 16:00 XO1 42.5 % (missing) PLT - PLATELET COUNT 2025-03-31 16:00 XO1 43 10 3/ul (missing) LIPASE 2025-03-31 16:00 XO1 44 u/l As of October 2022 test ing method has changed, this may include reference ranges. NEUTROPHILS # (AUTO) 2025-03-31 16:00 XO1 5.9 10 3/ul (missing) BILIRUBIN,TOTAL 2025-03-31 16:00 XO1 6.9 mg/dl As of October 2022 test ing method has changed, this may include reference ranges. TOTAL PROTEIN 2025-03-31 16:00 XO1 7.6 g/dl As of October 2022 test ing method has changed, this may include reference ranges. WHITE BLOOD COUNT 2025-03-31 16:00 XO1 7.7 x10 3/ul (missing) BUN - BLOOD UREA NITROGEN 2025-03-31 16:00 XO1 8 mg/dl As of October 2022 test ing method has changed, this may include reference ranges. ALT ALANINE AMINOTRANSFERASE 2025-03-31 16:00 XO1 86 iu/l As of October 2022 test ing method has changed, this may include reference ranges. CHLORIDE 2025-03-31 16:00 XO1 86 mmol/l As of October 2022 test ing method has changed, this may include reference ranges. CALCIUM 2025-03-31 16:00 XO1 9.6 mg/dl As of October 2022 test ing method has changed, this may include reference ranges. MEAN CORPUSCULAR VOLUME 2025-03-31 16:00 XO1 97.7 fl (missing) Result panel 2 INR 2025-03-31 16:34 XO1 1.4 (missing ) Oral Anticoagulant Indication INR range Venous Thrombosis, P.E. 2.0 - 3.0 Mechanical Valve 2.5 - 3.5 PT - PROTHROMBIN TIME 2025-03-31 16:34 XO1 15.1 secs N AMMONIA 2025-03-31 16:34 XO1 80.1 umol/l Critical result SADI 80.1 mol/L called to and read back by TORREY/HOLDEN Willis RN at 31-Mar-2025 16:49 by [employer]mariana. Slightly Hemolyzed: Results may be affected. As of October 2022 testing method has changed, this may include reference ranges. Result panel 3 UROBILINOGEN,URINE 2025-03-31 16:55 [facility] >=8.0 e.u./dl (missing) SPECIFIC GRAVITY,URINE 2025-03-31 16:55 [facility] 1.010 (missing) (missing) KETONES,URINE (UA) 2025-03-31 16:55 [facility] 40 mg/dl (missing) PH,URINE 2025-03-31 16:55 [facility] 7.0 ph (missing) CLARITY,URINE 2025-03-31 16:55 [facility] CLEAR (missing) (missing) MUDS CUTOFF CONCENTRATIONS 2025-03-31 16:55 [facility] CUTOFF CONC BELOW: (missing) [facility] uses the PROFILE-V [employer] Drugs of Abuse Test System. It detects drug classes at the following cutoff concentrations: AMP Amphetamine (d-Amphetamine) 500 ng/mL BAR Barbiturates (Butalbital) 200 ng/mL BZO Benzodiazepines (Nordiazepam) 150 ng/mL BUP Buprenorphine (Buprenorphine) 10 ng/mL HOLLIS Cocaine (Benzoylecgonine) 150 ng/mL MAMP Methamphetamine (d-Methamphetamine ) 500 ng/mL MTD Methadone (Methadone) 200 ng/mL OPI Opiates (Morphine) 100 ng/mL OXY Oxycodone (Oxycodone) 100 ng/mL PCP Phencyclidine (Phencyclidine) 25 ng/mL BUP Buprenorphine (Buprenorphine) 10 ng/mL THC Cannabinoids (64-sja-1-carboxy- 9-THC) 50 ng/mL TCA Tricyclic Antidepressants (Desipramine) 300 ng/mL All drug screen results are unconfirmed. Results are to be used for medical (i.e. treatment) purposes only. Unconfirmed screening results must not be used for non-medical purposes (e.g., employment testing, legal testing). COLOR,URINE 2025-03-31 16:55 [facility] DARK YELLOW (missing) URINE RANDOM BILIRUBIN,URINE 2025-03-31 16:55 [facility] LARGE (missing) Bilirubin can be influenced by color interference. Please correlate positive results with clinical presentation LEUKOCYTE ESTERASE, URINE 2025-03-31 16:55 [facility] NEGATIVE (missing) (missing) NITRITE,URINE 2025-03-31 16:55 XO1 NEGATIVE (missing) (missing) OCCULT BLOOD,URINE 2025-03-31 16:55 XO1 NEGATIVE (missing) (missing) GLUCOSE, URINE (UA) 2025-03-31 16:55 XO1 NEGATIVE mg/dl (missing) PROTEIN,URINE 2025-03-31 16:55 XO1 NEGATIVE mg/dl (missing) UR CULTURE IF IND 2025-03-31 16:55 XO1 NOT INDICATED (missing) (missing) URINE MICROSCOPIC INDICATED? 2025-03-31 16:55 XO1 NOT INDICATED (missing) (missing) FENTANYL SCREEN, URINE 2025-03-31 16:55 XO1 Negative (missing) [employer] uses LZI Fentanyl (Q) Enzyme Immunoassay. RESULT INTERPRETATION: This assay qualitatively detects norfentanyl in urine which is the major metabolite of fentanyl. A result greater than or equal to 5 ng/mL is considered presumptively positive for fentanyl exposure. CLINICAL SIGNIFICANCE: Presumptive positive results indicate norfentanyl concentrations above the assay cutoff. Due to possible cross-reactivity and potential interference, confirmatory testing by a definitive method (e.g., LC-MS/MS) is recommended for positive or unexpected findings. LIMITATIONS: This test is intended for qualitative screening and is unconfirmed. Concentrations below 5 ng/mL may not be reliably detected. False positives and false negatives are possible. Results are to be used for medical purposes only and can't be used for non-medical or legal purposes. Social History date description facility
--- NOTE | 2025-03-31 17:32 | HISTORY & PHYSICAL EXAMINATION ---
Chief Complaint Chief Complaint Chief Complaint: Altered mentation History of Present Illness Admitted From Admitted From:: ED History Obtained From Records Reviewed: [facility] History obtained from: EMR, ED Provider, Patient, Son History of Present Illness HPI Comment/Other: Gladys is a 45-year-old male with a past medical history significant for alcohol use disorder, hypertension, and prior TBI who presents with acutely altered mentation. The patient is a daily drinker, drinks approximately a bottle a day and has done so for many months. For unclear reasons around 03/26 he stopped drinking entirely. He was doing okay for most of the time. Was not tremulous. Was resting. Has historically gotten nauseous but had no history of withdrawal seizures. Starting around 03/30, he began having worsening slurred speech. When his son, Jeffrey, got home from work today, the patient was more confused, hallucinating. He was unable to walk due to to unsteadiness on his feet. He is notably jaundiced. His labs are consistent with alcoholic hepatitis, as well as new diagnosis of cirrhosis for the patient. He has thrombocytopenia that is worsened from prior. He has an elevated INR. Finally he has asterixis on exam. Denies any recent fevers or chills. Denies nausea or vomiting. Denies chest pain or dyspnea. Denies abdominal pain, abdominal swelling, or lower extremity edema. Denies any black or tarry stools. Thinks that his last bowel movement was probably days ago. His son tells me that he also recently quit smoking at the same time he stopped drinking. He was previously a pack-a-day smoker. He is being admitted for treatment of his altered mentation. I suspect most of his encephalopathy is related to hepatic encephalopathy in the setting of new onset cirrhosis. This may be exacerbated by anxiety and/or nicotine withdrawal. With his last drink being 5 days ago, he is outside of window for traditional withdrawal treatment. His risk for seizures peaks at 96 hours. Patient was told on admission that he has a new diagnosis likely of cirrhosis. He is receptive to this information. Given this new chronic, possibly terminal condition, I did encourage him to establish a DPOA. He has several adult children, but would likely name his adult son Jeffrey whom he lives with as his POA. He is otherwise. When inquiring about his CODE STATUS, the patient is clear that he "wants to keep fighting". He values more days for quality days at this point in time. Meds/Allgy Home Medications Ambulatory Orders Medication Instructions Recorded Confirmed ibuprofen 600 mg tablet 600 mg PO Q6H PRN Pain 01/1604/10/24 Held on 02/23/25. Instructions: Per Patient lisinopril 5 mg tablet 5 mg PO DAILY 01/17/2001/18 Held on 02/23/25. Instructions: Per Patient oxycodone 5 mg tablet 5 mg PO Q4-6H Pain #20 tabs 01/19/20 Held on 02/23/25. Instructions: Per Patient metoprolol succinate 50 mg 50 mg PO DAILY #30 tabs 04/10/24 tablet,extended release 24 hr Held on 02/23/25. Instructions: Per Patient potassium chloride 20 mEq 20 meq PO BID #10 tabs 04/0604/10/24 tablet,extended release(part/cryst) Held on 02/23/25. Instructions: Per Patient diclofenac potassium 50 mg tablet 50 mg PO TID PRN monica n #30 tabs 02/23/25 02/23/25 Allergies Allergies Allergy/AdvReac Type Severity Reaction Status Date / Time No Known Drug Allergies Allergy Verified 03/31/25 15:46 PFSH Active Problems All Active Problems (Updated 03/31/25 @ 17:41 by Ronnie Ellison DO) Hypokalemia (Acute) Alcohol use disorder (Acute) Cirrhosis (Acute) Acute alcoholic hepatitis (Acute) Hypomagnesemia (Acute) Hepatic encephalopathy (Acute) Elevated blood pressure reading (Chronic) Movement disorder (Acute) Hypertension (Acute) Sciatica (Acute) Medical History Medical History (Updated 03/31/25 @ 17:41 by Ronnie Ellison DO) Tonsillitis TBI (traumatic brain injury) Social History Social History Smoking Status: Former smoker How many cigarettes a day do you smoke? (20 cigarettes=1 Pk): 2 Second hand tobacco smoke exposure: Yes Do you dip or chew tobacco?: No Do you vape?: No Living arrangement: At home Do you feel safe in your home environment?: Yes History of physical, verbal, emotional, or financial abuse?: No ETOH Use: Frequency: Occasional POLST Patient has POLST: No Review of Systems Status of ROS: 10 or more systems reviewed and unremarkable except as noted in history and below Exam Exam Vital Signs: Vital Signs x48h Temp Pulse Resp BP Pulse Ox 03/31/25 16:40 94 18 122/92 H 95 03/31/25 16:33 89 18 122/92 H 97 03/31/25 16:10 102 H 19 97 03/31/25 15:41 98.3 C H 120 H 18 129/91 H 96 GEN: No acute distress, lying in bed, slurring speech HEENT: NC/AT, normal appearance of external ears and nose. Icteric conjunctiva. Hearing baseline. Cardiac: Tachycardic but regular. No murmurs appreciated. Pulm: Lungs CTA bilaterally, no cough, no wheezes. No adventitial lung sounds. Normal effort on room air. Abdomen: Soft, nontender, nondistended. No rebound or guarding. Extremities: Moves all 4 extremities equally. Normal tone. Skin: Spider angiomas present throughout chest Neuro: Face symmetric, CN II through XII intact grossly. Slurring of speech. Moving all extremities equally. Coarse moderate magnitude intention tremor. Asterixis present. Absent tongue fasciculations. Oriented to self, location, situation Psych: Mood euthymic with congruent affect. Appropriate and cooperative. Conclusion/Plan Problem List (1) Hepatic encephalopathy: Plan: Patient presenting with acute alteration of mental status. He has had some hallucinations. He has got tremors. He is somnolent. He has asterixis. Likely new diagnosis of cirrhosis as below. Ammonia level was checked in the ED is 80.1. His goal for should be at least 3 soft easy to pass bowel movements per 24 hours - I discussed his presentation with the ED provider, I agree that likely HE is driving most of his acute condition - I have elected to admit the patient to inpatient status on [facility] for further evaluation and treatment as outlined below - Will start lactulose 30 g every 2 hours with holding parameters - Lab monitoring as below - No utility in trending ammonia levels (2) Acute alcoholic hepatitis: Plan: Patient with last drink 5 days prior to admission. Presents with AST greater than ALT 153/86. Bilirubin 6.9. Was last 2.6 in September 2024. PT 15.1, INR 1.4. MDF is 24.2, good prognosis overall. Holding off on steroids. - Will start LR 100 mL/h - Management as above and below - Continue encourage alcohol cessation (3) Cirrhosis: Plan: I unfortunately feel that this gentleman has a new diagnosis of cirrhosis. His fib 4 score is 16.5. This puts him at high likelihood for advanced fibrosis stage F3-F4. Patient with a longstanding history of alcohol use disorder as below. By definition, he is decompensated with regards to hepatic encephalopathy. His MELD 3.0 is 20. This portends a 94.7% 90-day survival. Child-Real class B. He has minimal ascites of anything on exam. No lower extremity edema. He has never had a problem with fluid retention. He has had no upper GI bleeding. - Will get limited abdominal ultrasound - If tappable ascites, will get paracentesis to rule out SBP - Monitor CMP, INR daily - Low-sodium, high-protein diet - Will need outpatient hepatology follow-up for ongoing management - Will need outpatient variceal screening - Likely to need ongoing HCC screening (4) Alcohol use disorder: Plan: Patient reports a history of drinking daily 1 bottle a day for the last several months. His alcohol level was undetectable on admission. His last drink was reportedly 5 days ago. His son is able to confirm this. The patient actually believes his last drink was further back. Patient expresses motivation to maintain sobriety. This is advantageous in the setting of his likely cirrhosis. Low suspicion for alcohol withdrawal at this time, he is fairly far outside the window, most withdrawal would be expected to resolve at 5 days. - Elected not to start on CIWA with Ativan at this time - Fluids as above - Started on high-dose thiamine and MVI - Electrolyte replacement as below - Consideration for outpatient treatment, appreciate social work - Likely not appropriate for naltrexone in the setting of his acute hepatitis (5) TBI (traumatic brain injury): Plan: Longstanding history of TBI with speech issues and unsteadiness on his feet. Legs giving out from under him historically. It is unclear whether this was just covering for his chronic alcohol use prior to this. His TBI is likely complicating some of his hepatic encephalopathy presentation. - PT to evaluate (6) Hypertension: Plan: Per his history. He is on lisinopril and metoprolol prior to his hospitalization. - Would avoid treating asymptomatic hypertension in the hospitalized patient Qualifiers: Hypertension type: primary hypertension Qualified Code(s): I10 - Essential (primary) hypertension (7) Hypomagnesemia: (8) Hypokalemia: Plan: Likely in the setting of his chronic alcohol use and hypomagnesemia mediated hypokalemia. - IV repletion of magnesium, IV potassium ordered as well - Will trend magnesium and potassium in the morning, replace as needed Plan By problem as above I spent a total of 84 minutes in the care of this patient today. This time was spent reviewing labs, vital signs, imaging, interviewing and examining the patient, and discussing plan of care with them and their other care providers. Patient is being admitted with a new chronic condition and severe exacerbation with progression of his alcohol use disorder and hepatic encephalopathy. Discussion with the ED provider, and decision was made to admit the patient inpatient. [id number] Lab Results 03/31/25 16:00 03/31/25 16:00
[2025-03-31 17:37] LABS: AMPHETAMINE SCREEN,URINE NEGATIVE (NEGATIVE); BARBITURATE SCREEN,UR NEGATIVE (NEGATIVE); BENZODIAZEPINES SCREEN, URINE NEGATIVE (NEGATIVE); BUPRENORPHINE SCREEN, URINE NEGATIVE (NEGATIVE); COCAINE SCREEN URINE NEGATIVE (NEGATIVE); METHADONE SCREEN, URINE NEGATIVE (NEGATIVE); METHAMPHETAMINES SCREEN, URINE NEGATIVE (NEGATIVE); OPIATE SCREEN, URINE NEGATIVE (NEGATIVE); THC CANNABINOID SCREEN, URINE NEGATIVE (NEGATIVE)
[2025-03-31] MEDS: LACTULOSE 10 GM /15 ML UDC PO STA (17:41)
[2025-03-31] MEDS ORDERED: ONDANSETRON ODT 4 MG TABLET TL PRN (18:16)
[2025-03-31] MEDS ORDERED: SODIUM CHLORIDE FLUSH 0.9% 10 ML SYRINGE IVP PRN (18:16)
[2025-03-31] MEDS ORDERED: ONDANSETRON 4 MG/2 ML VIAL IVP PRN (18:16)
[2025-03-31] MEDS: LACTATED RINGERS 1,000 ML IV SCH (18:49)
[2025-03-31] MEDS: oxyCODONE 5 MG TABLET PO PRN (18:49)
[2025-03-31] MEDS: POTASSIUM CHLOR 10 MEQ/100 ML 10 MEQ/100 ML BAG IV SCH (18:49)
[2025-03-31] MEDS: LACTULOSE 10 GM /15 ML UDC PO SCH (18:49)
[2025-03-31] MEDS: NICOTINE 14 MG PATCH TOP SCH (18:49)
--- NOTE | 2025-03-31 23:46 | Ultrasound Report ---
PROCEDURE: US Abdomen Limited INDICATIONS: Suspect new cirrhosis, eval ascites TECHNIQUE: Real-time focused scanning was performed of the abdomen, with image documentation. COMPARISONS: None. FINDINGS: Liver: Increased liver echogenicity, with posterior attenuation, most consistent with moderate to severe hepatic steatosis. Gallbladder: No gallstones, sludge, wall thickening or pericholecystic edema. Biliary ducts: Intrahepatic bile ducts are non-dilated. Extrahepatic bile ducts not visualized due to overlying bowel gas Pancreas: Not well visualized due to overlying bowel gas. Right kidney: Normal in size and echotexture. Right kidney measures 12.1 cm long. No hydronephrosis or nephrolithiasis. No solid masses. No complex renal cystic lesions which require follow-up. IVC: Intrahepatic inferior vena cava is patent. Miscellaneous: No free abdominal fluid. IMPRESSION: Severe hepatic steatosis. No ascites. Reviewed by: Enrico Walsh MD on 03/31/2025 11:43 PM PST Approved by: Enrico Walsh MD on 03/31/2025 11:43 PM PST Station ID: [id number]
[2025-04-01] MEDS: ACETAMINOPHEN 500 MG TABLET PO PRN (00:57)
[2025-04-01] MEDS: SODIUM CHLORIDE FLUSH 0.9% 10 ML SYRINGE IVP SCH (00:58)
--- NOTE | 2025-04-01 01:41 | PROVIDER PROGRESS NOTE ---
Hospitalist Cross-cover Note Cross-Cover Note Cross-Cover Note: per nurse "Pt admitted for hepatic encephalopathy. Pt has hx of TBI, HTN, ETOH & Tobacco Abuse (pt quit drinking/smoking on 03/26). Pt is extremely anxious, impulsive & constantly getting up out of bed. Ripping/pulling at IV's. Difficult to direct. Vistaril ineffective. BP: 138/101, HR: 105. 2-3 nursing staff members have been in room almost constantly since start of shift. Hospitalist who left at 2200 said nursing could reach out to [facility] if Vistaril ineffective and get Ativan PRN ordered for pt. Thank You!!" ativan x 1 dose
[2025-04-01] MEDS: LORazepam 2 MG/ML VIAL IVP ONE ×2 (02:03→05:51)
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
--- NOTE | 2025-04-01 05:16 | PROVIDER PROGRESS NOTE ---
Hospitalist Cross-cover Note Cross-Cover Note Cross-Cover Note: per rn " Patient continues to be restless. Pulled out IV 2 times. Patient received vistaril 50 mg po @ 2. Also received Ativan 0.5 mg @ 0203 that was ineffective. Order received for Haldol 1 mg. Requesting for stronger dose as prior medications were not effective on patient. Patient had also received 1 mg ativan in the ED. Thank you." ativan 1 mg iv x1
[2025-04-01] MEDS: HALOPERIDOL 5 MG/ML VIAL IM ONE (07:00)
--- NOTE | 2025-04-01 07:45 | PROVIDER PROGRESS NOTE ---
Subjective Prog Note Date Prog Note Date: 04/01/25 Prog Note Time: 07:45 Subjective Subjective: Eventful night. Patient agitated throughout the night. Received Haldol, 2.5 mg Ativan. Still agitated this morning. Giving dose of LibriumThis morning and started on CIWA protocol with diazepam Patient remains encephalopathic most the morning. He has intermittent periods of lucidity. He is quite agitated throughout the day. No nausea or vomiting. He had several bowel movements this morning with lactulose. Denies fever/chills, abdominal pain. Current Medications Current Medications Current Medications: Current Medications Generic Name Dose Route Start Last Admin Trade Name Freq PRN Reason Stop Dose Admin Acetaminophen 500 mg 03/31/25 18:16 04/01/25 00:57 Acetaminophen 500 Mg Tablet PO 500 mg Q6H PRN Administration Pain 1 to 4, or Fever Chlordiazepoxide HCl 25 mg 04/01/25 08:00 Chlordiazepoxide 25 Mg Capsule PO Q6HR PAU Hydroxyzine Pamoate 50 mg 03/31/25 21:57 03/31/25 22:12 Hydroxyzine Pamoate 25 Mg Capsule PO 50 mg QPM PRN Administration Agitation Thiamine HCl 100 mg/ Sodium 51 mls @ 100 mls/hr 04/01/25 09:00 Chloride IV DAILY [facility] Lactulose 30 gm 03/31/25 18:16 04/01/25 05:44 Lactulose 10 Gm /15 Ml Udc PO Not Given Q2H [facility] Nicotine 1 patch 03/31/25 18:16 03/31/25 18:49 Nicotine 14 Mg Patch TOP Not Given DAILY PAU Ondansetron HCl 4 mg 03/31/25 18:16 Ondansetron Odt 4 Mg Tablet TL Q6HR PRN Nausea / Vomiting Ondansetron HCl 4 mg 03/31/25 18:16 Ondansetron 4 Mg/2 Ml Vial IVP Q6HR PRN Nausea / Vomiting Oxycodone HCl 5 mg 03/31/25 18:16 03/31/25 18:49 Oxycodone 5 Mg Tablet PO 5 mg Q4HR PRN Administration Pain 5 to 7 Oxycodone HCl 10 mg 03/31/25 18:16 Oxycodone 5 Mg Tablet PO Q4HR PRN Pain 8 to 10 Multivit/Folic Acid/Iron 1 tab 04/01/25 08:00 Vitamin Tablet PO DAILYWM [facility] Sodium Chloride 10 ml 03/31/25 18:16 Sodium Chloride Flush 0.9% 10 Ml Syringe IVP PRN PRN NEEDED PER PROVIDER ORDERS Sodium Chloride 10 ml 04/01/25 01:00 04/01/25 00:58 Sodium Chloride Flush 0.9% 10 Ml Syringe IVP 10 ml 0100,0900,1700 PAU Administration Objective Vital Signs/Intake & Output Reviewed Vital Signs: Yes Vital Signs: Vital Signs x48h Temp Pulse Resp BP Pulse Ox 04/01/25 06:10 36.7 C 88 18 143/103 H 97 04/01/25 00:30 125/98 H 04/01/25 00:15 36.3 C L 105 H 18 135/110 H 96 Intake & Output: Intake & Output 03/29/25 03/30/25 03/31/25 04/01/25 23:59 23:59 23:59 23:59 Intake Total 1450 / 1450 1300 / 1300 Output Total 100 / 100 Balance 1350 / 1350 1300 / 1300 Weight (kg) 87.5 kg 85 kg Objective Comments/Other: GEN: Agitated, hallucinating. HEENT: NC/AT, normal appearance of external ears and nose. Hearing baseline. Mucous membranes moist Cardiac: Tachycardic, regular. No murmurs appreciated. Generally euvolemic on exam. Pulm: Lungs CTA bilaterally, no cough, no wheezes. Normal effort on room air Abdomen: Obese, soft, nontender. No rebound tenderness or guarding. Extremities: Flailing all 4 extremities. No focal neurologic deficits. Good tone. Strong. Neuro: Face symmetric, CN II through XII intact grossly. Persistently dysarthric (ISO TBI?) Asterixis present, absent tongue fasciculations or tremor. No focal deficits. Gait exam deferred. Psych: Mood anxious, affect congruent. Lab Results 04/01/25 07:54 04/01/25 07:54 Other Labs: Lab Results x24hrs 03/31/25 03/31/25 03/31/25 Range/Units 16:55 16:34 16:00 WBC 7.7 (4.8-10.8) x10^3/uL RBC 4.35 L (4.70-6.10) 10^6/uL Hgb 14.9 (14.0-18.0) g/dL Hct 42.5 (42.0-52.0) % MCV 97.7 H (80.0-94.0) fL MCH 34.3 H (27.0-31.0) pg MCHC 35.1 (32.0-36.0) g/dL RDW 12.7 (12.0-15.0) % Plt Count 43 L (130-450) 10^3/uL MPV 12.7 H (7.4-11.4) fL Neut # (Auto) 5.9 (1.5-6.6) 10^3/uL Lymph # (Auto) 0.7 L (1.5-3.5) 10^3/uL [place] # (Auto) 1.0 (0.0-1.0) 10^3/uL Eos # (Auto) 0.0 (0.0-0.7) 10^3/uL Baso # (Auto) 0.0 (0.0-0.1) 10^3/uL Absolute Nucleated RBC 0.00 x10^3/uL Nucleated RBC % 0.0 /100WBC PT 15.1 H (9.9-12.6) secs INR 1.4 H (0.8-1.2) Sodium 130 L (135-145) mmol/L Potassium 2.9 L (3.5-4.5) mmol/L Chloride 86 L (101-111) mmol/L Carbon Dioxide 23 (21-32) mmol/L Anion Gap 21.0 H (6-13) BUN 8 (6-20) mg/dL Creatinine 0.7 (0.6-1.3) mg/dL Estimated GFR (MDRD) 122 (>89) Glucose 108 H (74-104) mg/dL Calcium 9.6 (8.5-10.3) mg/dL Magnesium 1.1 L (1.7-2.3) mg/dL Total Bilirubin 6.9 H (0.2-1.0) mg/dL AST 153 H (10-42) IU/L ALT 86 H (10-60) IU/L Alkaline Phosphatase 133 H (42-121) IU/L Ammonia 80.1 H* (18-72) umol/L Total Protein 7.6 (6.4-8.9) g/dL Albumin 4.3 (3.2-5.5) g/dL Globulin 3.3 (2.1-4.2) g/dL Albumin/Globulin Ratio 1.3 (1.0-2.2) Lipase 44 (11-82) U/L Urine Color DARK YELLOW Urine Clarity CLEAR (CLEAR) Urine pH 7.0 (5.0-7.5) PH Ur Specific [place] 1.010 (1.002-1.030) Urine Protein NEGATIVE (NEGATIVE) mg/dL Urine Glucose (UA) NEGATIVE (NEGATIVE) mg/dL Urine Ketones 40 H (NEGATIVE) mg/dL Urine Occult Blood NEGATIVE (NEGATIVE) Urine Nitrite NEGATIVE (NEGATIVE) Urine Bilirubin LARGE H (NEGATIVE) Urine Urobilinogen >=8.0 H (NORMAL) E.U./dL Ur Leukocyte Esterase NEGATIVE (NEGATIVE) Ur Microscopic Review NOT INDICATED Urine Culture Comments NOT INDICATED Urine Opiates Screen NEGATIVE (NEGATIVE) Ur Buprenorphine Scrn NEGATIVE (NEGATIVE) Ur Oxycodone Screen NEGATIVE (NEGATIVE) Urine Methadone Screen NEGATIVE (NEGATIVE) Urine Fentanyl Screen Negative (NEGATIVE) Acetaminophen 0.1 ug/mL Ur Barbiturates Screen NEGATIVE (NEGATIVE) Ur Tricyclics Screen NEGATIVE (NEGATIVE) Ur Phencyclidine Scrn NEGATIVE (NEGATIVE) Ur Amphetamine Screen NEGATIVE (NEGATIVE) U Methamphetamines Scrn NEGATIVE (NEGATIVE) U Benzodiazepines Scrn NEGATIVE (NEGATIVE) Urine Cocaine Screen NEGATIVE (NEGATIVE) U Cannabinoids Screen NEGATIVE (NEGATIVE) Ur Drug Screen Comment CUTOFF CONC BELOW: Ethyl Alcohol < 10.0 mg/dL Assessment/Plan Problem List (1) Alcohol use disorder: Impression: Patient has demonstrated more symptoms of withdrawal. He is more agitated as of this morning. Remained agitated overnight on night of admission. Reported last drink was 5 days prior to admission. Had no symptoms of withdrawal previous to this. He was previously a daily 1 bottle a day drinker. I question whether he had some surreptitious drinking in the interim between when he was thought to quit on 03/26 and when he presented. Patient expressed motivation to maintain sobriety on admission. - CIWA with diazepam - Scheduled Librium through today - One-to-one sitter ordered, moving to the ICU - Consideration for Precedex if he continues to be agitated - IV thiamine for Warnicke's prophylaxis - Electrolyte replacement as below - Would be appropriate for outpatient treatment, appreciate social work - Likely inappropriate for KENNETH, not a naltrexone candidate with his alcohol hepatitis (2) Hepatic encephalopathy: Impression: Stable, now having bowel movements. Initially with concern for this, he did not have typical HE. He was more agitated and tremulous on initial presentation. He was somnolent, but not obtunded. Complicated interpretation in the setting of his underlying TBI His ammonia level in the ED was 80.1. He had multiple bowel movements after starting q2 hours lactulose. - Continue 30 g lactulose 3 times daily with goal of 3-4 bowel movements every 24 hours - By guideline, not trending ammonia (3) Acute alcoholic hepatitis: Impression: Improving. His bilirubin is down today. His INR is improved. Reportedly last drink was 5 days prior to admission. AST greater than ALT on presentation. Bilirubin was 6.9. INR 1.4 on admission. His MDF was 24.2 on admission with good prognosis overall, steroids were not started. - Discontinue fluids today, encourage oral hydration - Manage cirrhosis, withdrawal as above and below (4) Cirrhosis: Impression: Stable, chronic. Labs improving. MELD 3.0: 18, estimated 96.3% 90-day survival Child-Real class B. No ascites on imaging. No history of fluid retention. No history of upper GI bleed. Fib 4 score 16.5. This indicates high likelihood of advanced fibrosis stage F3- F4. Abdominal ultrasound from this admission reveals severe hepatic steatosis. - Monitor CMP, INR daily - Low-sodium, high-protein diet - Outpatient FibroScan versus hepatology follow-up - Likely outpatient variceal screening (5) TBI (traumatic brain injury): Impression: Longstanding issue for this patient with ongoing dysarthria which is baseline for him. Leg weakness which is baseline for him. Complicating his above presentation. - Noted - Will need PT evaluation eventually, not yet (6) Hypertension: Impression: Continues to have hypertension. Possibly longstanding. Possibly in the setting of his alcohol use. - Avoiding treating asymptomatic hypertension - Likely defer starting antihypertensives to the outpatient provider. Qualifiers: Hypertension type: primary hypertension Qualified Code(s): I10 - Essential (primary) hypertension (7) Tobacco dependence due to cigarettes: Impression: Patient was a previous pack-a-day smoker. Recently stopped smoking as well. Son thinks this was around 03/26 as well. Quit cold turkey. - Continue nicotine patch to aleviate polypharmaceutical withdrawal. (8) Hypomagnesemia: (9) Hypokalemia: Impression: Potassium stable at 2.9 this morning. Repleted orally x 2 today. Magnesium persistently low at 1.6. - Continue daily magnesium supplementation - CMP in a.m., replete K as needed
[2025-04-01 08:02] LABS: HCT - HEMATOCRIT 38.7 % (42.0-52.0); HGB - HEMOGLOBIN 13.4 g/dL (14.0-18.0); MEAN PLATELET VOLUME 12.8 fL (7.4-11.4); NRBC ABSOLUTE COUNT (AUTO) 0.00 x10^3/uL; NUCLEATED RED BLOOD CELLS AUTO 0.0 /100WBC; PLT - PLATELET COUNT 36 10^3/uL (130-450); RED CELL DISTRIBUTION WIDTH 13.0 % (12.0-15.0)
[2025-04-01 08:21] LABS: INR 1.2 (0.8-1.2); PT - PROTHROMBIN TIME 13.7 secs (9.9-12.6)
[2025-04-01 08:25] LABS: ALT ALANINE AMINOTRANSFERASE 71.0 IU/L (10-60); AST ASPARTATE AMINOTRANSFERASE 127.0 IU/L (10-42); BUN - BLOOD UREA NITROGEN 10.0 mg/dL (6-20); CARBON DIOXIDE - CO2 25.0 mmol/L (21-32); CREATININE 0.6 mg/dL (0.6-1.3); GFR - MDRD 146.0 (>89)
[2025-04-01] MEDS: THIAMINE INJ 100 MG in SODIUM CHLORIDE 0.9% 50 ML IV SCH (08:33)
[2025-04-01] MEDS: PRENATAL VITAMIN TABLET PO SCH (08:33)
[2025-04-01] MEDS ORDERED: diazePAM INJ 5 MG/ML SYRINGE IVP PRN (08:43)
[2025-04-01] MEDS ORDERED: THIAMINE 100 MG TABLET PO SCH (09:00)
[2025-04-01] MEDS: MAGNESIUM OXIDE 400 MG TABLET PO SCH (09:03)
[2025-04-01] MEDS: POTASSIUM CHLORIDE 20 MEQ TABLET PO ONE ×2 (09:03→13:04)
[2025-04-01] MEDS: oxyCODONE 5 MG TABLET PO PRN (12:11)
[2025-04-01] MEDS: LACTULOSE 10 GM /15 ML UDC PO SCH (13:06)
[2025-04-01] MEDS: D5.45NS W/20 MEQ KCL 1,000 ML IV SCH (15:58)
--- NOTE | 2025-04-01 17:31 | XRAY Report ---
PROCEDURE: XR Chest 1V INDICATIONS: Productive cough, altered mentation TECHNIQUE: One view of the chest was acquired. COMPARISON: 12/04/2021 and multiple prior radiographs. FINDINGS: Surgical changes and devices: None. Lungs and pleura: No pleural effusions or pneumothorax. No consolidation. Mediastinum: Mediastinal contours appear normal. Heart size is normal. Bones and chest wall: Mild multilevel degenerative disc disease present. No suspicious bony lesions. Overlying soft tissues appear unremarkable. Previous plate and screw fixation of a left humerus fracture. Extent of the hardware is incompletely in the [id number]. IMPRESSION: No acute cardiopulmonary process. Reviewed by: Lynnette Atkins MD on 04/01/2025 5:27 PM PST Approved by: Lynnette Atkins MD on 04/01/2025 5:27 PM PST Station ID: [id number]
[2025-04-01] MEDS: FAMOTIDINE 20 MG TABLET PO SCH (18:35)
[2025-04-01] MEDS: IPRATROPIUM/ALBUTEROL 3 ML NEB INH PRN (21:47)
[2025-04-01] MEDS: guaiFENesin 100 MG/5 ML UDC PO PRN (21:54)
[2025-04-02 04:21] LABS: HCT - HEMATOCRIT 38.4 % (42.0-52.0); HGB - HEMOGLOBIN 13.1 g/dL (14.0-18.0); MEAN PLATELET VOLUME 11.0 fL (7.4-11.4); NRBC ABSOLUTE COUNT (AUTO) 0.00 x10^3/uL; NUCLEATED RED BLOOD CELLS AUTO 0.0 /100WBC; RED CELL DISTRIBUTION WIDTH 13.1 % (12.0-15.0)
[2025-04-02 04:25] LABS: PLT - PLATELET COUNT 35 10^3/uL (130-450); SLIDE REVIEW? Indicated
[2025-04-02 04:26] LABS: INR 1.2 (0.8-1.2); PT - PROTHROMBIN TIME 13.6 secs (9.9-12.6)
[2025-04-02 04:37] LABS: ALT ALANINE AMINOTRANSFERASE 60.0 IU/L (10-60); AST ASPARTATE AMINOTRANSFERASE 101.0 IU/L (10-42); BUN - BLOOD UREA NITROGEN 6.0 mg/dL (6-20); CARBON DIOXIDE - CO2 30.0 mmol/L (21-32); CREATININE 0.4 mg/dL (0.6-1.3); GFR - MDRD 233.0 (>89)
[2025-04-02 04:46] LABS: PLATELET ESTIMATE, MANUAL DECREASED (<130,000) (NORMAL); PLATELET MORPHOLOGY NORMAL APPEARANCE (NORMAL); RBC MORPHOLOGY (MULTIPLE) NORMAL APPEARANCE (NORMAL); WBC MORPHOLOGY (MULTIPLE) NORMAL APPEARANCE (NORMAL)
--- NOTE | 2025-04-02 07:48 | PROVIDER PROGRESS NOTE ---
Subjective Prog Note Date Prog Note Date: 04/02/25 Prog Note Time: 07:43 Subjective Subjective: Patient had a less active night, CIWA has remained lower. Not scoring over 20. I do question his 5:00 CIWA which has 3 points for tremor. He was not exhibiting any tremor yesterday. Having auditory visual hallucinations. Vital signs remained stable. His white blood cell count is 3.4. Hemoglobin stable. Platelets stable and low. PT/INR, similar to yesterday. Metabolic's with K3.2. Bili now 4.7 continues to downtrend. AST and ALT normalizing. Creatinine remains normal. MRSA PCR from ICU intake was negative. On exam, he is much were lucid this morning. He is able to articulate. He does not remember why he is in the hospital. He feels like the last couple of days were a dream. He understands he is in alcohol withdrawal. He again reiterates that he thinks his last drink was 2 weeks ago. He acknowledges that his son may be right that it was only 1 week ago. He reports that he is having some pain in his neck, back, shoulder, knees. Denies any nausea and vomiting. No significant tremor on exam. Denies any visual or auditory hallucinations. Current Medications Current Medications Current Medications: Current Medications Generic Name Dose Route Start Last Admin Trade Name Keshawn PRN Reason Stop Dose Admin Acetaminophen 500 mg 03/31/25 18:16 04/01/25 00:57 Acetaminophen 500 Mg Tablet PO 500 mg Q6H PRN Administration Pain 1 to 4, or Fever Albuterol/Ipratropium 3 ml 04/01/25 18:33 04/01/25 21:47 Ipratropium/Albuterol 3 Ml Neb INH 3 ml Q4HR PRN Administration Wheezing Chlordiazepoxide HCl 25 mg 04/01/25 08:00 04/02/25 05:38 Chlordiazepoxide 25 Mg Capsule PO 25 mg Q6HR PAU Administration Diazepam 10 mg 04/01/25 08:43 04/02/25 05:38 Diazepam 5 Mg Tablet PO 10 mg Q1H PRN Administration CIWA>8 Protocol Diazepam 10 mg 04/01/25 08:43 Diazepam Inj 5 Mg/Ml Syringe IVP Q30M PRN CIWA>8 Protocol Famotidine 20 mg 04/01/25 15:45 04/01/25 21:47 Famotidine 20 Mg Tablet PO 20 mg BID PAU Administration Guaifenesin 200 mg 04/01/25 17:41 04/01/25 21:54 Guaifenesin 100 Mg/5 Ml Udc PO 200 mg Q4H PRN Administration Cough Thiamine HCl 100 mg/ Sodium 51 mls @ 100 mls/hr 04/01/25 09:00 04/01/25 09:04 Chloride IV Infused DAILY PAU Infusion Potassium Chloride/Dextrose/Sod Cl 1,000 mls @ 83.333 mls/hr 04/01/25 15:20 04/02/25 03:00 D5.45ns W/20 Meq Kcl IV 83.33 mls/hr .Q12H PAU Administration Lactulose 30 gm 04/01/25 14:00 04/02/25 05:37 Lactulose 10 Gm /15 Ml Udc PO 30 gm TID PAU Administration Magnesium Oxide 400 mg 04/01/25 09:00 04/01/25 09:03 Magnesium Oxide 400 Mg Tablet PO 400 mg DAILYWM PAU Administration Nicotine 1 patch 03/31/25 18:16 04/01/25 08:33 Nicotine 14 Mg Patch TOP 1 patch DAILY PAU Administration Ondansetron HCl 4 mg 03/31/25 18:16 Ondansetron Odt 4 Mg Tablet TL Q6HR PRN Nausea / Vomiting Ondansetron HCl 4 mg 03/31/25 18:16 Ondansetron 4 Mg/2 Ml Vial IVP Q6HR PRN Nausea / Vomiting Oxycodone HCl 5 mg 03/31/25 18:16 04/02/25 05:38 Oxycodone 5 Mg Tablet PO 5 mg Q4HR PRN Administration Pain 5 to 7 Oxycodone HCl 10 mg 03/31/25 18:16 04/02/25 02:21 Oxycodone 5 Mg Tablet PO 10 mg Q4HR PRN Administration Pain 8 to 10 Multivit/Folic Acid/Iron 1 tab 04/01/25 08:00 04/01/25 08:33 Vitamin Tablet PO 1 tab DAILYWM PAU Administration Sodium Chloride 10 ml 03/31/25 18:16 Sodium Chloride Flush 0.9% 10 Ml Syringe IVP PRN PRN NEEDED PER PROVIDER ORDERS Sodium Chloride 10 ml 04/01/25 01:00 04/02/25 01:11 Sodium Chloride Flush 0.9% 10 Ml Syringe IVP Not Given 0100,0900,1700 [facility] Objective Vital Signs/Intake & Output Reviewed Vital Signs: Yes Vital Signs: Vital Signs x48h Temp Pulse Resp BP Pulse Ox O2 Flow Rate 04/02/25 07:00 67 19 105/61 97 3 04/02/25 06:00 72 24 115/82 96 3 04/02/25 05:00 37.1 C 79 23 112/71 92 3 04/02/25 04:00 97 25 H 109/75 93 3 04/02/25 03:00 79 20 114/78 99 3 04/02/25 02:00 87 22 118/71 94 3 04/02/25 01:00 77 27 H 113/69 92 3 04/02/25 00:00 36.7 C 82 29 H 114/73 96 3 Intake & Output: Intake & Output 03/30/25 03/31/25 04/01/25 04/02/25 23:59 23:59 23:59 23:59 Intake Total 1450 / 1450 2731 / 2731 1619 / 1619 Output Total 100 / 100 1350 / 1350 725 / 725 Balance 1350 / 1350 1381 / 1381 894 / 894 Weight (kg) 87.5 kg 85 kg 86.5 kg Objective Comments/Other: GEN: No acute distress. Lying in bed. HEENT: NC/AT, normal appearance of external ears and nose. Hearing baseline. Mucous membranes moist Cardiac: Regular rate and rhythm. No murmurs. Euvolemic on exam. Pulm: Lungs CTA bilaterally, no cough, no wheezes. Normal effort on 3 L via NC Abdomen: Obese, soft, nontender. No rebound tenderness or guarding. Extremities: Moving all 4 extremities. IV in his right forearm was wrapped under gauze. Surgical scar on his left shoulder. Normal tone. Normal strength. Neuro: Face symmetric, CN II through XII intact grossly. Fluent dysarthria, but seemingly baseline now No tremor or tongue fasciculations. Tongue is midline. No evident asterixis. No focal deficits. Gait exam deferred. Psych: Mood euthymic with congruent affect. Appropriate and cooperative. Lab Results 04/02/25 04:13 04/02/25 04:13 Other Labs: Lab Results x24hrs 04/02/25 04/01/25 04/01/25 Range/Units 04:13 15:20 07:54 WBC 3.4 L 6.3 (4.8-10.8) x10^3/uL RBC 3.79 L 3.92 L (4.70-6.10) 10^6/uL Hgb 13.1 L 13.4 L (14.0-18.0) g/dL Hct 38.4 L 38.7 L (42.0-52.0) % MCV 101.3 H 98.7 H (80.0-94.0) fL MCH 34.6 H 34.2 H (27.0-31.0) pg MCHC 34.1 34.6 (32.0-36.0) g/dL RDW 13.1 13.0 (12.0-15.0) % Plt Count 35 L* 36 L (130-450) 10^3/uL MPV 11.0 12.8 H (7.4-11.4) fL Neut # (Auto) 2.3 4.8 (1.5-6.6) 10^3/uL Lymph # (Auto) 0.4 L 0.5 L (1.5-3.5) 10^3/uL Dickens # (Auto) 0.6 1.0 (0.0-1.0) 10^3/uL Eos # (Auto) 0.0 0.0 (0.0-0.7) 10^3/uL Baso # (Auto) 0.0 0.0 (0.0-0.1) 10^3/uL Absolute Nucleated RBC 0.00 0.00 x10^3/uL Nucleated RBC % 0.0 0.0 /100WBC Manual Slide Review Indicated WBC Morphology NORMAL APPEARANCE (NORMAL) Platelet Estimate DECREASED (<130,000) (NORMAL) Platelet Morphology NORMAL APPEARANCE (NORMAL) RBC Morph Micro Appear NORMAL APPEARANCE (NORMAL) PT 13.6 H 13.7 H (9.9-12.6) secs INR 1.2 1.2 (0.8-1.2) Sodium 136 130 L (135-145) mmol/L Potassium 3.2 L 2.9 L (3.5-4.5) mmol/L Chloride 99 L 91 L (101-111) mmol/L Carbon Dioxide 30 25 (21-32) mmol/L Anion Gap 7.0 14.0 H (6-13) BUN 6 10 (6-20) mg/dL Creatinine 0.4 L 0.6 (0.6-1.3) mg/dL Estimated GFR (MDRD) 233 146 (>89) Glucose 127 H 100 (74-104) mg/dL Calcium 8.9 9.0 (8.5-10.3) mg/dL Magnesium 1.6 L (1.7-2.3) mg/dL Total Bilirubin 4.7 H 5.8 H (0.2-1.0) mg/dL AST 101 H 127 H (10-42) IU/L ALT 60 71 H (10-60) IU/L Alkaline Phosphatase 104 114 (42-121) IU/L Total Protein 6.3 L 6.8 (6.4-8.9) g/dL Albumin 3.6 3.9 (3.2-5.5) g/dL Globulin 2.7 2.9 (2.1-4.2) g/dL Albumin/Globulin Ratio 1.3 1.3 (1.0-2.2) Nasal Screen MRSA (PCR) NEGATIVE (NEGATIVE) Assessment/Plan Problem List (1) Alcohol use disorder: Impression: Improved withdrawal symptoms. CIWA is low this morning. Received 2 doses of diazepam overnight. Still on scheduled Librium. More lucid. Denies hallucinations. Reported last drink was 5 days prior to admission. Had no symptoms of withdrawal previous to this. He was previously a daily 1 bottle a day drinker. I question whether he had some surreptitious drinking in the interim between when he was thought to quit on 03/26 and when he presented on 03/31. He has been going through a normal withdrawal cycle if his presumed last drink was 03/30. Patient expressed motivation to maintain sobriety on admission. Continues to endorse this as of 04/02. - CIWA with diazepam 10mg po/IV q1H prn for 1 more day - Continue scheduled Librium, will space out to 3 times daily - Remains in ICU at this time, one-to-one sitter ordered. Likely can liberalize to floor later today if remains stable - IV thiamine for Warnicke's prophylaxis - Transition to oral thiamine tomorrow - Electrolyte replacement as below - Would be appropriate for outpatient treatment, appreciate social work, He is lucid to work with them today - Likely inappropriate for [facility], not a naltrexone candidate with his alcoholic hepatitis (2) Hepatic encephalopathy: Impression: No asterixis on exam. Last charted bowel movement was yesterday. Initially with concern for this, he did not have typical HE. He was more agitated and tremulous on initial presentation. He was somnolent, but not obtunded. Complicated interpretation in the setting of his underlying TBI His ammonia level in the ED was 80.1. He had multiple bowel movements after starting q2 hours lactulose. - Continue 30 g lactulose 3 times daily with goal of 3-4 bowel movements every 24 hours - By guideline, not trending ammonia (3) Cirrhosis: Impression: Stable, chronic. Labs improving. MELD 3.0: 15, estimated 97.8% 90-day survival Child-Real class B. No ascites on imaging. No history of fluid retention. No history of upper GI bleed. Fib 4 score 16.5. This indicates high likelihood of advanced fibrosis stage F3- F4. Abdominal ultrasound from this admission reveals severe hepatic steatosis. - Monitor CMP, INR daily - Low-sodium, high-protein diet - Outpatient FibroScan versus hepatology follow-up - Continue to encourage sobriety - Likely outpatient variceal screening (4) Pain: Impression: Patient has been having nonspecific pain in his neck, shoulders, knees, back. This may be in the setting of his hepatitis and generalized inflammatory state. Possibly he is experiencing a viral mediated process as well. Moving all extremities. Low suspicion for septic joint. Normal white count. No fevers. He has been receiving large amounts of oxycodone - 25 mg total yesterday. Given that this can worsen constipation and hepatic encephalopathy, will try to limit. Additionally concerned with polypharmacy between benzodiazepines and narcotics. - Will schedule out Tylenol 500 mg 3 times daily - Heating pad when able - Topical diclofenac, limited systemic absorption - Continue prn oxycodone for breakthrough - Avoid systemic NSAIDs iso of his cirrhosis (5) Acute alcoholic hepatitis: Impression: Improving. Continues to have improving bilirubin and INR. No right upper quadrant pain. Transaminases are also downtrending. Reportedly last drink was 5 days prior to admission. AST greater than ALT on presentation. Bilirubin was 6.9. INR 1.4 on admission. His MDF was 24.2 on admission with good prognosis overall, steroids were not started. - Fluids were restarted yesterday, discontinuing again once he is eating breakfast this morning. - Manage cirrhosis, withdrawal as above (6) TBI (traumatic brain injury): Impression: Longstanding issue for this patient with ongoing dysarthria which is baseline for him. Leg weakness which is baseline for him. Complicating his above presentation. Clarified with his son on 04/01, he has had 2 traumatic head injuries resulting in skull fractures, 1 of which was a fall in the bathroom striking his head on the toilet. The first was a crush injury at work under a piece of heavy equipment. Both of these were several years ago. - Noted - Appropriate for PT evaluation, they are not on service today, consider tomorrow. (7) Hypertension: Impression: No longer is hypertensive this morning. Suspect this may have been mediated by agitation and anxiety. Possibly longstanding. Possibly in the setting of his alcohol use. - Avoiding treating asymptomatic hypertension - Likely defer starting antihypertensives to the outpatient provider. - Likely to discharge with blood pressure logs to track and return to his primary care provider. Qualifiers: Hypertension type: primary hypertension Qualified Code(s): I10 - Essential (primary) hypertension (8) Tobacco dependence due to cigarettes: Impression: Patient was a previous pack-a-day smoker. Recently stopped smoking as well. Son thinks this was around 03/26 as well. Quit cold turkey. - Continue nicotine patch to aleviate polypharmaceutical withdrawal. (9) Hypomagnesemia: (10) Hypokalemia: Impression: Potassium is improved to 3.2 from 2.9. Will give 40 of oral KCl today. Magnesium persistently low at 1.6. - Continue daily magnesium supplementation with 400mg orally - CMP in a.m., replete K as needed I spent a total of 52 minutes in the care of this patient today. This time was spent reviewing labs, vital signs, imaging, interviewing and examining the patient, and discussing plan of care with them and their other care providers. Patient is admitted with severe exacerbation of a chronic illness in the setting of his alcohol withdrawal, hepatic encephalopathy, and cirrhosis. Management of parenteral and enteral controlled substances as above. [id number]
[2025-04-02] MEDS: POTASSIUM CHLORIDE 20 MEQ TABLET PO ONE (09:06)
[2025-04-02] MEDS: ACETAMINOPHEN 500 MG TABLET PO SCH (09:06)
[2025-04-02 14:53] LABS: BUN - BLOOD UREA NITROGEN 7.0 mg/dL (6-20); CARBON DIOXIDE - CO2 30.0 mmol/L (21-32); CREATININE 0.4 mg/dL (0.6-1.3); GFR - MDRD 233.0 (>89)
[2025-04-03 05:45] LABS: HCT - HEMATOCRIT 43.5 % (42.0-52.0); HGB - HEMOGLOBIN 14.1 g/dL (14.0-18.0); MEAN PLATELET VOLUME 12.0 fL (7.4-11.4); NRBC ABSOLUTE COUNT (AUTO) 0.00 x10^3/uL; NUCLEATED RED BLOOD CELLS AUTO 0.0 /100WBC; PLT - PLATELET COUNT 71 10^3/uL (130-450); RED CELL DISTRIBUTION WIDTH 13.3 % (12.0-15.0)
[2025-04-03 06:04] LABS: ALT ALANINE AMINOTRANSFERASE 80.0 IU/L (10-60); AST ASPARTATE AMINOTRANSFERASE 137.0 IU/L (10-42); BUN - BLOOD UREA NITROGEN 5.0 mg/dL (6-20); CARBON DIOXIDE - CO2 34.0 mmol/L (21-32); CREATININE 0.4 mg/dL (0.6-1.3); GFR - MDRD 233.0 (>89)
--- NOTE | 2025-04-03 07:04 | Discharge Summary ---
Discharge Summary ALLERGIES Allergies Allergy/AdvReac Type Severity Reaction Status Date / Time No Known Drug Allergies Allergy Verified 03/31/25 15:46 MEDICATIONS Ambulatory Orders Medication Instructions Recorded Confirmed ibuprofen 600 mg tablet 600 mg PO Q6H PRN Pain 01/1604/01/25 Held on 02/23/25. Instructions: Per Patient lisinopril 5 mg tablet 5 mg PO DAILY 01/17/2004/01 Held on 02/23/25. Instructions: Per Patient oxycodone 5 mg tablet 5 mg PO Q4-6H Pain #20 tabs 01/19/20 04/01/25 Held on 02/23/25. Instructions: Per Patient metoprolol succinate 50 mg 50 mg PO DAILY #30 tabs 04/01/25 tablet,extended release 24 hr Held on 02/23/25. Instructions: Per Patient potassium chloride 20 mEq 20 meq PO BID #10 tabs 04/0604/01/25 tablet,extended release(part/cryst) Held on 02/23/25. Instructions: Per Patient diclofenac potassium 50 mg tablet 50 mg PO TID PRN monica n #30 tabs 02/23/25 04/01/25 PHYSICAL EXAM AT DISCHARGE Vital Signs: Vital Signs x48h Temp Pulse Resp BP Pulse Ox 04/03/25 08:09 36.7 C 88 16 114/84 94 LABS 04/03/25 05:35 04/03/25 05:35 Discharge Plan Discharge Condition: Serious Prescriptions: No Action lisinopril 5 MG tablet 5 mg PO DAILY ibuprofen 600 MG tablet 600 mg PO Q6H PRN (Reason: Pain) oxycodone 5 MG tablet 5 mg PO Q4-6H Qty: 20 0RF Rx Instructions: Take 1 tablet by mouth every 4-6 hours as needed for breakthrough pain potassium chloride 20 mEq tablet,ER particles/crystals 20 meq PO BID Qty: 10 2RF metoprolol succinate 50 mg tablet extended release 24 hr 50 mg PO DAILY Qty: 30 2RF diclofenac potassium 50 mg tablet 50 mg PO TID PRN (Reason: pain) Qty: 30 0RF Print Language: Romansh Stand Alone Forms: PCP List Vitals documented within 30 minutes of discharge?: Yes
[2025-04-03] MEDS: THIAMINE 100 MG TABLET PO SCH (08:20)
--- NOTE | 2025-04-03 15:49 | PROVIDER PROGRESS NOTE ---
Subjective Prog Note Date Prog Note Date: 04/03/25 Prog Note Time: 15:49 Subjective Subjective: Patient continues to do reasonably well. He is somnolent today, awakens and gets pain medicines. He got lactulose this afternoon, but his dose was not given this morning. He has not had 3 bowel movements in the last 24 hours. Nicotine patch was not given this morning at patient's request. He is no longer demonstrating significant withdrawal physiology. He is calm and cooperative. He ate 3 meals yesterday. His CIWA's have all been single digits. Patient feels reasonably well this morning. Denies any fever/chills. Denies chest pain or dyspnea. Denies significant anxiety. Denies hallucinations. He feels like he is nearing his normal. Continues to have mostly musculoskeletal pain. Current Medications Current Medications Current Medications: Current Medications Generic Name Dose Route Start Last Admin Trade Name Freq PRN Reason Stop Dose Admin Acetaminophen 500 mg 04/02/25 09:00 04/03/25 14:08 Acetaminophen 500 Mg Tablet PO 500 mg TID PAU Administration Albuterol/Ipratropium 3 ml 04/01/25 18:33 04/02/25 21:53 Ipratropium/Albuterol 3 Ml Neb INH 3 ml Q4HR PRN Administration Wheezing Diazepam 10 mg 04/01/25 08:43 04/02/25 05:38 Diazepam 5 Mg Tablet PO 10 mg Q1H PRN Administration CIWA>8 Protocol Diazepam 10 mg 04/01/25 08:43 Diazepam Inj 5 Mg/Ml Syringe IVP Q30M PRN CIWA>8 Protocol Diclofenac Sodium 4 gm 04/02/25 08:56 Diclofenac Sodium 1% Gel 50 Gm Tube TOP QID PRN Mild Pain (Level 1-3) Famotidine 20 mg 04/01/25 15:45 04/03/25 08:20 Famotidine 20 Mg Tablet PO 20 mg BID PAU Administration Guaifenesin 200 mg 04/01/25 17:41 04/02/25 12:57 Guaifenesin 100 Mg/5 Ml Udc PO 200 mg Q4H PRN Administration Cough Lactulose 30 gm 04/01/25 14:00 04/03/25 14:09 Lactulose 10 Gm /15 Ml Udc PO 30 gm TID PAU Administration Magnesium Oxide 400 mg 04/01/25 09:00 04/03/25 08:20 Magnesium Oxide 400 Mg Tablet PO 400 mg DAILYWM PAU Administration Nicotine 1 patch 03/31/25 18:16 04/03/25 08:21 Nicotine 14 Mg Patch TOP Not Given DAILY PAU Ondansetron HCl 4 mg 03/31/25 18:16 Ondansetron Odt 4 Mg Tablet TL Q6HR PRN Nausea / Vomiting Ondansetron HCl 4 mg 03/31/25 18:16 Ondansetron 4 Mg/2 Ml Vial IVP Q6HR PRN Nausea / Vomiting Multivit/Folic Acid/Iron 1 tab 04/01/25 08:00 04/03/25 08:21 Vitamin Tablet PO 1 tab DAILYWM PAU Administration Sodium Chloride 10 ml 03/31/25 18:16 Sodium Chloride Flush 0.9% 10 Ml Syringe IVP PRN PRN NEEDED PER PROVIDER ORDERS Sodium Chloride 10 ml 04/01/25 01:00 04/03/25 08:21 Sodium Chloride Flush 0.9% 10 Ml Syringe IVP 10 ml 0100,0900,1700 PAU Administration Thiamine HCl 100 mg 04/03/25 09:00 04/03/25 08:20 Thiamine 100 Mg Tablet PO 100 mg DAILY PAU Administration Objective Vital Signs/Intake & Output Reviewed Vital Signs: Yes Vital Signs: Vital Signs x48h Temp Pulse Resp BP Pulse Ox 04/03/25 15:39 36.5 C 89 14 109/74 91 L 04/03/25 08:09 36.7 C 88 16 114/84 94 Intake & Output: Intake & Output 03/31/25 04/01/25 04/02/25 04/03/25 23:59 23:59 23:59 23:59 Intake Total 1450 / 1450 2731 / 2731 3581 / 3581 390 / 390 Output Total 100 / 100 1350 / 1350 1950 / 1950 400 / 400 Balance 1350 / 1350 1381 / 1381 1631 / 1631 -10 / -10 Weight (kg) 87.5 kg 85 kg 86.5 kg Objective Comments/Other: GEN: No acute distress. Lying in bed. Somnolent but rouses easily. Slurring words more. HEENT: NC/AT, normal appearance of external ears and nose. Hearing baseline. Mucous membranes moist Cardiac: Regular rate and rhythm. No murmurs. Euvolemic on exam. Pulm: Lungs CTA bilaterally, no cough, no wheezes. Normal effort on room air. Abdomen: Obese, soft, nontender. No rebound tenderness or guarding. Extremities: Moving all 4 extremities. Surgical scar on his left shoulder. Normal tone. Normal strength. Neuro: Face symmetric, CN II through XII intact grossly. Fluent dysarthria, Slurring. No tremor or tongue fasciculations. Tongue is midline. Mild asterixis. No focal deficits. Gait exam deferred. Psych: Mood euthymic with congruent affect. Appropriate and cooperative. Lab Results 04/03/25 05:35 04/03/25 05:35 Other Labs: Lab Results x24hrs 04/03/25 Range/Units 05:35 WBC 3.7 L (4.8-10.8) x10^3/uL RBC 4.15 L (4.70-6.10) 10^6/uL Hgb 14.1 (14.0-18.0) g/dL Hct 43.5 (42.0-52.0) % MCV 104.8 H (80.0-94.0) fL MCH 34.0 H (27.0-31.0) pg MCHC 32.4 (32.0-36.0) g/dL RDW 13.3 (12.0-15.0) % Plt Count 71 L (130-450) 10^3/uL MPV 12.0 H (7.4-11.4) fL Neut # (Auto) 2.0 (1.5-6.6) 10^3/uL Lymph # (Auto) 0.8 L (1.5-3.5) 10^3/uL [place] # (Auto) 0.7 (0.0-1.0) 10^3/uL Eos # (Auto) 0.1 (0.0-0.7) 10^3/uL Baso # (Auto) 0.1 (0.0-0.1) 10^3/uL Absolute Nucleated RBC 0.00 x10^3/uL Nucleated RBC % 0.0 /100WBC Sodium 138 (135-145) mmol/L Potassium 3.8 (3.5-4.5) mmol/L Chloride 98 L (101-111) mmol/L Carbon Dioxide 34 H (21-32) mmol/L Anion Gap 6.0 (6-13) BUN 5 L (6-20) mg/dL Creatinine 0.4 L (0.6-1.3) mg/dL Estimated GFR (MDRD) 233 (>89) Glucose 114 H (74-104) mg/dL Calcium 9.4 (8.5-10.3) mg/dL Total Bilirubin 3.4 H (0.2-1.0) mg/dL AST 137 H (10-42) IU/L ALT 80 H (10-60) IU/L Alkaline Phosphatase 127 H (42-121) IU/L Total Protein 7.2 (6.4-8.9) g/dL Albumin 3.7 (3.2-5.5) g/dL Globulin 3.5 (2.1-4.2) g/dL Albumin/Globulin Ratio 1.1 (1.0-2.2) Assessment/Plan Problem List (1) Alcohol use disorder: Impression: Withdrawal has now resolved. Has not required symptom driven treatments. He received Librium this morning. His CIWA remains low. He was liberalized to the floor from the ICU 04/02 Reported last drink was 5 days prior to admission. Had no symptoms of withdrawal previous to this. He was previously a daily 1 bottle a day drinker. I question whether he had some surreptitious drinking in the interim between when he was thought to quit on 03/26 and when he presented on 03/31. He has been going through a normal withdrawal cycle if his presumed last drink was 03/30. His withdrawal will begin to normalize as of 04/02. He is not requiring symptom driven treatments as of 04/03. Patient expressed motivation to maintain sobriety on admission. Continues to endorse this as of 04/02. He was treated with IV thiamine for Warnicke prophylaxis while in acute withdrawal. - Discontinue Librium and CIWA - Continue oral thiamine 100 mg indefinitely - Would be appropriate for outpatient treatment, appreciate social work, He has resources available to him. - Likely inappropriate for [facility], not a naltrexone candidate with his alcoholic hepatitis (2) Hepatic encephalopathy: Impression: Minimal asterixis. No bowel movement, lactulose was not given this morning for unclear reasons. I worry that he has worsening HCE with his new slurring of speech and somnolence Initially with concern for this, he did not have typical HE. He was more agitated and tremulous on initial presentation. He was somnolent, but not obtunded. Complicated interpretation in the setting of his underlying TBI His ammonia level in the ED was 80.1. He had multiple bowel movements after starting q2 hours lactulose. - Continue 30 g lactulose 3 times daily with goal of 3-4 bowel movements every 24 hours - I have discussed with nursing and encouraged that they continue giving lactulose - By guideline, not trending ammonia - Discontinuing opiates as I worry they are giving him constipation (3) Cirrhosis: Impression: Labs continue to improve. No evidence of ascites, HE as above MELD 3.0: 13, estimated 98.4% 90-day survival Child-Real class B. No ascites on imaging. No history of fluid retention. No history of upper GI bleed. Fib 4 score 16.5. This indicates high likelihood of advanced fibrosis stage F3- F4. Abdominal ultrasound from this admission reveals severe hepatic steatosis. - Trend labs 1 more time tomorrow morning then likely defer to outpatient approximately early April - Low-sodium, high-protein diet - Outpatient FibroScan versus hepatology follow-up - Continue to encourage sobriety - Likely outpatient variceal screening (4) Pain: Impression: Patient has been having nonspecific pain in his neck, shoulders, knees, back. This may be in the setting of his hepatitis and generalized inflammatory state. Possibly he is experiencing a viral mediated process as well. Moving all extremities. Low suspicion for septic joint. Normal white count. No fevers. He has been receiving large amounts of oxycodone - 25 mg total yesterday. Given that this can worsen constipation and hepatic encephalopathy, will try to limit. Additionally concerned with polypharmacy between benzodiazepines and narcotics. - Will schedule out Tylenol 500 mg 3 times daily - Heating pad when able - Topical diclofenac, limited systemic absorption - Discontinue narcotics as he has been getting them fairly regularly and may be worsening his encephalopathy - Avoid systemic NSAIDs iso of his cirrhosis (5) Acute alcoholic hepatitis: Impression: Improving. Continues to have improving bilirubin and INR. No right upper quadrant pain. Transaminases are also downtrending. Reportedly last drink was 5 days prior to admission. AST greater than ALT on presentation. Bilirubin was 6.9. INR 1.4 on admission. His MDF was 24.2 on admission with good prognosis overall, steroids were not started. - Manage cirrhosis, withdrawal as above - Labs in early April as above (6) TBI (traumatic brain injury): Impression: Longstanding issue for this patient with ongoing dysarthria which is baseline for him. Leg weakness which is baseline for him. Complicating his above presentation. Clarified with his son on 04/01, he has had 2 traumatic head injuries resulting in skull fractures, 1 of which was a fall in the bathroom striking his head on the toilet. The first was a crush injury at work under a piece of heavy equipment. Both of these were several years ago. - Noted - PT was able to evaluate today, fair he is far from baseline, recommending SNF (7) Hypertension: Impression: No longer is hypertensive this morning. Suspect this may have been mediated by agitation and anxiety. Possibly longstanding. Possibly in the setting of his alcohol use. - Avoiding treating asymptomatic hypertension - Likely defer starting antihypertensives to the outpatient provider. - Likely to discharge with blood pressure logs to track and return to his primary care provider. Qualifiers: Hypertension type: primary hypertension Qualified Code(s): I10 - Essential (primary) hypertension (8) Tobacco dependence due to cigarettes: Impression: Patient was a previous pack-a-day smoker. Recently stopped smoking as well. Son thinks this was around 03/26 as well. Quit cold turkey. - Discontinue nicotine patch as patient has been refusing. (9) Hypomagnesemia: (10) Hypokalemia: Impression: Potassium and magnesium now normal. Magnesium persistently low at 1.6. - Trend labs in 1 month as above - Continue empiric magnesium supplementation 40 mg daily I spent a total of 51 minutes in the care of this patient today. This time was spent reviewing labs, vital signs, imaging, interviewing and examining the patient, and discussing plan of care with them and their other care providers. Patient with severe exacerbation of a chronic illness. Data review as above. Data interpretation as above. Discussed his case with PT. Plan to discharge to SNF versus reeval in 1 to 2 days. [id number].
--- NOTE | 2025-04-03 16:37 | PT Plan of Care ---
PT Inpatient Plan of Care DIAGNOSIS Diagnosis: hepatic encephalopathy; cirrhosis Referring Provider: Ronnie Ellison Patient Status: Inpatient CHIEF COMPLAINT Chief Complaint: AMS Onset of Chief Complaint: ARMATURE AND ROTOR WINDER on 03/31/25 MEDICAL/SURGICAL HISTORY Medical History (Updated 04/02/25 @ 08:54 by Ronnie Ellison, DO) Tonsillitis TBI (traumatic brain injury) BALANCE/FUNCTIONAL RESULTS Sitting Balance: Fair Standing Balance: Poor Tinetti Composite Score (Balance + Gait): 7 Tinetti Assessment Interpretation: High Fall Risk ASSESSMENT Assessment: The pt is a 45 y/o M who arrived to the ED on 03/31/25 due to AMS, he was hospitalized with hepatic encephalopathy and cirrhosis. PMH includes TBI and HTN, please see chart for complete medical hx. The pt was received resting comfortably supine in bed and presented today with noted lethargy, decreased B UE and LE strength, decreased activity tolerance, limited activity, and cervical and parascapular pain all of which limited his tolerance and safety with functional mobility. He required multiple VC's to remain focused on the task at hand. At this time recommend continued skilled PT intervention while in the acute setting and DC to SNF for further rehab once pt medically stable s he is functioning far below his baseline level of Ind. This plan was discussed with the pt and he was in agreement with this. At the end of the session the pt was sitting up in a chair with call light in reach, chair alarm in place and on, and all needs met while RN administering pain medication. RN, PUBLIC HE[employer] AIDES TEACHER, and MD all updated on pt's status and DC rec. PATIENT/FAMILY GOALS Patient/Family Goals: To be stronger and more stable to go home GOALS Improve supine to sit to:: Contact Guard Improve sit to stand to:: Minimal Assist Improve pivot transfer ability to:: Minimal Assist Improve sit to supine to:: Contact Guard Improve gait ability to:: Min A Advance Assistive Device to:: Front Wheeled Walker Increase distance walked to (in feet):: 50 Improve Sitting Balance to:: Good PLAN Frequency: 1-2x/day Duration: Until goals are met DISCHARGE RECOMMENDATIONS Discharge Location: Alf Facility Support/Services Needed: With assist Other Discharge Equipment: tbd Transport Needs at Discharge: Personal vehicle
[2025-04-04 05:36] LABS: HCT - HEMATOCRIT 40.3 % (42.0-52.0); HGB - HEMOGLOBIN 13.4 g/dL (14.0-18.0); MEAN PLATELET VOLUME 11.6 fL (7.4-11.4); NRBC ABSOLUTE COUNT (AUTO) 0.00 x10^3/uL; NUCLEATED RED BLOOD CELLS AUTO 0.0 /100WBC; PLT - PLATELET COUNT 86 10^3/uL (130-450); RED CELL DISTRIBUTION WIDTH 13.7 % (12.0-15.0)
[2025-04-04 06:00] LABS: ALT ALANINE AMINOTRANSFERASE 74.0 IU/L (10-60); AST ASPARTATE AMINOTRANSFERASE 114.0 IU/L (10-42); BUN - BLOOD UREA NITROGEN 5.0 mg/dL (6-20); CARBON DIOXIDE - CO2 33.0 mmol/L (21-32); CREATININE 0.5 mg/dL (0.6-1.3); GFR - MDRD 180.0 (>89)
[2025-04-04] MEDS: DICLOFENAC SODIUM 1% GEL 50 GM TUBE TOP PRN (08:52)
--- NOTE | 2025-04-04 09:02 | PHARMACY PROGRESS NOTE ---
Best Possible Medication History Admit Date and Time: 03/31/25 1701 Home Medications Medication Instructions Recorded Confirmed Type ibuprofen 600 mg tablet 600 mg PO Q6H PRN Pain 01/1604/01/25 History Held on 02/23/25. Instructions: Per Patient lisinopril 5 mg tablet 5 mg PO DAILY 01/17/2004/01 History Held on 02/23/25. Instructions: Per Patient oxycodone 5 mg tablet 5 mg PO Q4-6H Pain #20 tabs 01/19/20 04/01/25 Rx Held on 02/23/25. Instructions: Per Patient metoprolol succinate 50 mg 50 mg PO DAILY #30 tabs 04/01/25 Rx tablet,extended release 24 hr Held on 02/23/25. Instructions: Per Patient potassium chloride 20 mEq 20 meq PO BID #10 tabs 04/0604/01/25 Rx tablet,extended release(part/cryst) Held on 02/23/25. Instructions: Per Patient diclofenac potassium 50 mg tablet 50 mg PO TID PRN monica n #30 tabs 02/23/25 04/01/25 Rx Processed by: Pharmacy Medications reviewed in ED?: Yes Medication History completed: Yes Patient Interview: Completed Secondary Source(s): Insurance records [facility] Statement: Per pt most medications while active are currently held and are not being given As the person ultimately responsible for medication therapy, providers are able to order a medication from an existing home medication list in [facility] via the "Reconcile Routine" prior to Confirmation of that medication by administrative support assoc. Such practice is discouraged except when the physician, in their clinical judgment, deems that a medical need exists for a medication without regard to previous use.
--- NOTE | 2025-04-04 13:00 | PROVIDER PROGRESS NOTE ---
Subjective Prog Note Date Prog Note Date: 04/04/25 Prog Note Time: 12:57 Subjective Subjective: No acute events overnight. Patient remains having some pain, reasonably managed with current treatments. He is off of opiates overnight last night. He still somewhat somnolent this morning. Continues to have significant ataxia. I watched him walk with PT today. 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 He will need SNF. Patient denies any fevers or chills, chest pain or dyspnea. Denies abdominal pain, nausea or vomiting. Continuing to have a productive cough, but he thinks it is slowing down. Current Medications Current Medications Current Medications: Current Medications Generic Name Dose Route Start Last Admin Trade Name Freq PRN Reason Stop Dose Admin Acetaminophen 500 mg 04/02/25 09:00 04/04/25 05:07 Acetaminophen 500 Mg Tablet PO 500 mg TID PAU Administration Albuterol/Ipratropium 3 ml 04/01/25 18:33 04/04/25 02:29 Ipratropium/Albuterol 3 Ml Neb INH 3 ml Q4HR PRN Administration Wheezing Diazepam 10 mg 04/01/25 08:43 04/02/25 05:38 Diazepam 5 Mg Tablet PO 10 mg Q1H PRN Administration CIWA>8 Protocol Diazepam 10 mg 04/01/25 08:43 Diazepam Inj 5 Mg/Ml Syringe IVP Q30M PRN CIWA>8 Protocol Diclofenac Sodium 4 gm 04/02/25 08:56 04/04/25 08:52 Diclofenac Sodium 1% Gel 50 Gm Tube TOP 4 gm QID PRN Administration Mild Pain (Level 1-3) Famotidine 20 mg 04/01/25 15:45 04/04/25 08:51 Famotidine 20 Mg Tablet PO 20 mg BID PAU Administration Guaifenesin 200 mg 04/01/25 17:41 04/02/25 12:57 Guaifenesin 100 Mg/5 Ml Udc PO 200 mg Q4H PRN Administration Cough Lactulose 30 gm 04/01/25 14:00 04/04/25 05:06 Lactulose 10 Gm /15 Ml Udc PO 30 gm TID PAU Administration Magnesium Oxide 400 mg 04/01/25 09:00 04/04/25 08:51 Magnesium Oxide 400 Mg Tablet PO 400 mg DAILYWM PAU Administration Nicotine 1 patch 03/31/25 18:16 04/04/25 08:55 Nicotine 14 Mg Patch TOP Not Given DAILY PAU Ondansetron HCl 4 mg 03/31/25 18:16 Ondansetron Odt 4 Mg Tablet TL Q6HR PRN Nausea / Vomiting Ondansetron HCl 4 mg 03/31/25 18:16 Ondansetron 4 Mg/2 Ml Vial IVP Q6HR PRN Nausea / Vomiting Multivit/Folic Acid/Iron 1 tab 04/01/25 08:00 04/04/25 08:51 Vitamin Tablet PO 1 tab DAILYWM PAU Administration Sodium Chloride 10 ml 03/31/25 18:16 Sodium Chloride Flush 0.9% 10 Ml Syringe IVP PRN PRN NEEDED PER PROVIDER ORDERS Sodium Chloride 10 ml 04/01/25 01:00 04/04/25 08:51 Sodium Chloride Flush 0.9% 10 Ml Syringe IVP 10 ml 0100,0900,1700 PAU Administration Thiamine HCl 100 mg 04/03/25 09:00 04/04/25 08:51 Thiamine 100 Mg Tablet PO 100 mg DAILY PAU Administration Objective Vital Signs/Intake & Output Reviewed Vital Signs: Yes Vital Signs: Vital Signs x48h Temp Pulse Resp BP Pulse Ox 04/03/25 15:39 36.5 C 89 14 109/74 91 L 04/03/25 08:09 36.7 C 88 16 114/84 94 Intake & Output: Intake & Output 04/01/25 04/02/25 04/03/25 04/04/25 23:59 23:59 23:59 23:59 Intake Total 2731 / 2731 3581 / 3581 1390 / 1390 300 / 300 Output Total 1350 / 1350 1950 / 1950 1525 / 1525 1076 / 1076 Balance 1381 / 1381 1631 / 1631 -135 / -135 -776 / -776 Weight (kg) 85 kg 86.5 kg 88.5 kg 85.5 kg Objective Comments/Other: GEN: No acute distress. Lying in bed. Somnolent but rouses easily. Slurring words more. HEENT: NC/AT, normal appearance of external ears and nose. Hearing baseline. Mucous membranes moist Cardiac: Regular rate and rhythm. No murmurs. Euvolemic on exam. Pulm: Lungs CTA bilaterally, no cough, no wheezes. Normal effort on room air. Abdomen: Obese, soft, nontender. No rebound tenderness or guarding. Extremities: Moving all 4 extremities. Surgical scar on his left shoulder. Normal tone. Normal strength. Neuro: Face symmetric, CN II through XII intact grossly. Fluent dysarthria, Slurring. No tremor or tongue fasciculations. Tongue is midline. Mild asterixis. No focal deficits. Gait exam deferred. Psych: Mood euthymic with congruent affect. Appropriate and cooperative. Lab Results 04/04/25 05:30 04/04/25 05:30 Other Labs: Lab Results x24hrs 04/04/25 Range/Units 05:30 WBC 3.7 L (4.8-10.8) x10^3/uL RBC 3.86 L (4.70-6.10) 10^6/uL Hgb 13.4 L (14.0-18.0) g/dL Hct 40.3 L (42.0-52.0) % MCV 104.4 H (80.0-94.0) fL MCH 34.7 H (27.0-31.0) pg MCHC 33.3 (32.0-36.0) g/dL RDW 13.7 (12.0-15.0) % Plt Count 86 L (130-450) 10^3/uL MPV 11.6 H (7.4-11.4) fL Neut # (Auto) 1.7 (1.5-6.6) 10^3/uL Lymph # (Auto) 0.9 L (1.5-3.5) 10^3/uL [place] # (Auto) 1.0 (0.0-1.0) 10^3/uL Eos # (Auto) 0.1 (0.0-0.7) 10^3/uL Baso # (Auto) 0.1 (0.0-0.1) 10^3/uL Absolute Nucleated RBC 0.00 x10^3/uL Nucleated RBC % 0.0 /100WBC Sodium 136 (135-145) mmol/L Potassium 3.6 (3.5-4.5) mmol/L Chloride 97 L (101-111) mmol/L Carbon Dioxide 33 H (21-32) mmol/L Anion Gap 6.0 (6-13) BUN 5 L (6-20) mg/dL Creatinine 0.5 L (0.6-1.3) mg/dL Estimated GFR (MDRD) 180 (>89) Glucose 114 H (74-104) mg/dL Calcium 9.6 (8.5-10.3) mg/dL Total Bilirubin 2.7 H (0.2-1.0) mg/dL AST 114 H (10-42) IU/L ALT 74 H (10-60) IU/L Alkaline Phosphatase 121 (42-121) IU/L Total Protein 6.5 (6.4-8.9) g/dL Albumin 3.4 (3.2-5.5) g/dL Globulin 3.1 (2.1-4.2) g/dL Albumin/Globulin Ratio 1.1 (1.0-2.2) Assessment/Plan Problem List (1) Alcohol use disorder: Impression: No longer exhibiting any withdrawal physiology. Nontremulous, no significant anxiety. No nausea or vomiting. Last dose of Librium yesterday morning. Reported last drink was 5 days prior to admission. Had no symptoms of withdrawal previous to this. He was previously a daily 1 bottle a day drinker. I question whether he had some surreptitious drinking in the interim between when he was thought to quit on 03/26 and when he presented on 03/31. He has been going through a normal withdrawal cycle if his presumed last drink was 03/30. His withdrawal will begin to normalize as of 04/02. He is not requiring symptom driven treatments as of 04/03. Patient expressed motivation to maintain sobriety on admission. Continues to endorse this as of 04/02. He was treated with IV thiamine for Warnicke prophylaxis while in acute withdrawal. He has some significant gait ataxia remaining, and likely unsafe to go home independently at this time. - Continue oral thiamine 100 mg indefinitely - Will likely need SNF at discharge, significant ataxia, suspected cerebral degeneration. - Likely inappropriate for [facility], not a naltrexone candidate with his alcoholic hepatitis (2) Hepatic encephalopathy: Impression: Bowel movement this morning. He still remains quite somnolent, as a result of either his withdrawal or treatment. Not yet having 3 soft bowel movements daily. Initially with concern for this, he did not have typical HE. He was more agitated and tremulous on initial presentation. He was somnolent, but not obtunded. Complicated interpretation in the setting of his underlying TBI His ammonia level in the ED was 80.1. He had multiple bowel movements after starting q2 hours lactulose. He then had precipitated withdrawal as above. - Increase lactulose 30 g to 4 times daily with goal of 3-4 bowel movements every 24 hours - By guideline, not trending ammonia - Continue off of opiates as below. (3) Cirrhosis: Impression: Labs continue to improve. No evidence of ascites, HE as above MELD 3.0: 13, estimated 98.4% 90-day survival Child-Real class B. No ascites on imaging. No history of fluid retention. No history of upper GI bleed. Fib 4 score 16.5. This indicates high likelihood of advanced fibrosis stage F3- F4. Abdominal ultrasound from this admission reveals severe hepatic steatosis. - Recommend follow-up on CMP and liver enzymes in 4 weeks, mid April - Low-sodium, high-protein diet - No need for diuretics at this time, no significant ascites - Outpatient FibroScan versus hepatology follow-up - Continue to encourage sobriety - Likely outpatient variceal screening (4) Pain: Impression: Patient has been having nonspecific pain in his neck, shoulders, knees, back. Mostly in the back and shoulder blades. Normal white count. No fevers. Low suspicion for infection. Seems chronic. He has been receiving large amounts of oxycodone - 25 mg total yesterday. Given that this can worsen constipation and hepatic encephalopathy, will try to limit. Additionally concerned with polypharmacy between benzodiazepines and narcotics. - Increase Tylenol to 500 mg 4 times daily - Lidocaine patch - Heating pad when able - Topical diclofenac, limited systemic absorption - Holding off on resuming narcotics in the setting of constipation, worsening encephalopathy. - Avoid systemic NSAIDs iso of his cirrhosis (5) Acute alcoholic hepatitis: Impression: Improving. Continues to have improving bilirubin and INR. No right upper quadrant pain. Transaminases are also downtrending. Reportedly last drink was 5 days prior to admission. AST greater than ALT on presentation. Bilirubin was 6.9. INR 1.4 on admission. His MDF was 24.2 on admission with good prognosis overall, steroids were not started. - Manage cirrhosis, withdrawal as above - Labs in early April as above (6) TBI (traumatic brain injury): Impression: Longstanding issue for this patient with ongoing dysarthria which is baseline for him. Leg weakness which is baseline for him. Seems progressive with worsened ataxia this hospitalization. Suspect cerebral atrophy. Son clarifies that he has been out of work for a month, and drinking daily since then Clarified with his son on 04/01, he has had 2 traumatic head injuries resulting in skull fractures, 1 of which was a fall in the bathroom striking his head on the toilet. The first was a crush injury at work under a piece of heavy equipment. Both of these were several years ago. - Noted - SNF as above (7) Hypertension: Impression: Has been normotensive since his withdrawal is resolved. Possibly longstanding. Possibly in the setting of his alcohol use. - Avoiding treating asymptomatic hypertension - Likely defer starting antihypertensives to the outpatient provider. Qualifiers: Hypertension type: primary hypertension Qualified Code(s): I10 - Essential (primary) hypertension (8) Tobacco dependence due to cigarettes: Impression: Patient was a previous pack-a-day smoker. Recently stopped smoking as well. Son thinks this was around 03/26 as well. Quit cold turkey. Had been started on nicotine patch on arrival in effort to avoid polypharmacy withdrawal. He has since been refusing nicotine patch. - Discontinue nicotine patch - Patient is motivated to maintain ongoing cessation. (9) Hypomagnesemia: (10) Hypokalemia: Impression: Potassium and magnesium now normal. Magnesium persistently low at 1.6. - Trend labs in 1 month as above - Continue empiric magnesium supplementation 40 mg daily I spent a total of 47 minutes in the care of this patient today. This time was spent reviewing labs, vital signs, imaging, interviewing and examining the patient, and discussing plan of care with them and their other care providers. Patient with severe exacerbation of a chronic illness. Data review as above. Data interpretation as above. Discussed his case with PT And case management. Plan will be to discharge to SNF. SNF search started. [id number]
[2025-04-04] MEDS: ACETAMINOPHEN 500 MG TABLET PO SCH (14:40)
--- NOTE | 2025-04-04 16:32 | Discharge Summary ---
Discharge Summary Admit Date: 03/31/25 Discharge Date: 04/04/25 Discharging Provider: Ronnie Ellison Primary Care Provider: No PCP Code Status: Attempt Resuscitation DIAGNOSES Discharge Diagnoses with Status of Each Condition: Acute alcohol withdrawal, resolved Gait ataxia, ongoing Alcohol use disorder, in remission Likely cirrhosis, new diagnosis, stable Alcoholic hepatitis, improved Hypertension, resolved History of TBI, stable HPI History of Present Illness: Connor is a 45-year-old male with a past medical history significant for alcohol use disorder, hypertension, and prior TBI who presents with acutely altered mentation. The patient is a daily drinker, drinks approximately a bottle a day and has done so for many months. For unclear reasons around 03/26 he stopped drinking entirely. He was doing okay for most of the time. Was not tremulous. Was resting. Has historically gotten nauseous but had no history of withdrawal seizures. Starting around 03/30, he began having worsening slurred speech. When his son, Jeffrey, got home from work today, the patient was more confused, hallucinating. He was unable to walk due to to unsteadiness on his feet. He is notably jaundiced. His labs are consistent with alcoholic hepatitis, as well as new diagnosis of cirrhosis for the patient. He has thrombocytopenia that is worsened from prior. He has an elevated INR. Finally he has asterixis on exam. Denies any recent fevers or chills. Denies nausea or vomiting. Denies chest pain or dyspnea. Denies abdominal pain, abdominal swelling, or lower extremity edema. Denies any black or tarry stools. Thinks that his last bowel movement was probably days ago. His son tells me that he also recently quit smoking at the same time he stopped drinking. He was previously a pack-a-day smoker. He is being admitted for treatment of his altered mentation. I suspect most of his encephalopathy is related to hepatic encephalopathy in the setting of new onset cirrhosis. This may be exacerbated by anxiety and/or nicotine withdrawal. With his last drink being 5 days ago, he is outside of window for traditional withdrawal treatment. His risk for seizures peaks at 96 hours. Patient was told on admission that he has a new diagnosis likely of cirrhosis. He is receptive to this information. Given this new chronic, possibly terminal condition, I did encourage him to establish a DPOA. He has several adult children, but would likely name his adult son Jeffrey whom he lives with as his POA. He is otherwise. When inquiring about his CODE STATUS, the patient is clear that he "wants to keep fighting". He values more days for quality days at this point in time. CONSULTS | PROCEDURES Consultations: PT HOSPITAL COURSE Hospital Course: Patient is a 45-year-old male with past medical history of significant alcohol use, worsening over the month prior to his admission. His initial story was consistent with his last drink being almost 5 days prior to his presentation with no symptoms or withdrawal preceding. His presentation was not wholly consistent with an acute withdrawal process, but over the ensuing 24 hours following admission, he began to demonstrate clear signs of withdrawal. He was started on CIWA and frontloaded with Librium. His CIWA's were consistently in the 20s for about 18 hours, treated with IV and oral diazepam. He improved appropriately on these medications, and within the 2 days prior to discharge, he was closer to his baseline. He denied any agitation, nausea, vomiting, alcohol cravings. He received parenteral thiamine throughout his withdrawal, 100 mg daily. Despite this, he had significant ataxia following his withdrawal. I suspect this may be some cerebellar degeneration. He has pretty significant ataxia when working with PT. He was recommended for SNF. I discussed with him the day of discharge. He he adamantly refuses going to SNF. He says he wants to go home. He says he has bills to pay. He says he needs to be home to take care of his family. His son Fabrice is a caregiver, that works at a memory care facility. He lives 3 minutes from home. He feels confident that he can care for his dad in this state. I have recommended against them going home, but the patient is decisional, and allowed to do so. In shared decision making, the patient will discharge home with home health versus going to a SNF. During this hospitalization, he has demonstrated evidence of new onset cirrhosis. He has synthetic function findings including normal cytopenia and prolonged PT which are both suggestive of advanced fibrosis. His fib 4 score was 16.5. His MELD dropped dramatically during this hospitalization and is around 15 on the day of discharge. He has remained T[employer] class B. He has no ascites. He had alcoholic hepatitis on admission, but his MDF was suggestive of good prognosis and he was not started on corticosteroids. Patient discharged to the community on the evening of 04/04. He was seen and evaluated. His son is at bedside and agrees with this plan. He will discharge home via private transport. I am sending him with medications for hepatic encephalopathy, as he has demonstrated signs of this as well as elevated ammonia in the ED on admission. He is adamant that he will stop drinking. This is advised. He needs to follow-up with hepatology in the community. He likely needs to establish with a primary care doctor before establishing with hepatology, both the steps family is aware that they should undertake. He will need a FibroScan versus biopsy versus hepatology consult for final diagnosis of cirrhosis. Given his young age if he can maintain sobriety, he would seemingly be an reasonable candidate for a liver transplant. He will also need cirrhotic screening if his diagnosis is confirmed including variceal screening and HCC screening. He had no ascites during this admission on his abdominal ultrasound, no paracentesis was performed. Diuretics were not started. The patient is eager to live a long life. He is motivated to quit drinking. He has recently quit smoking as well. He is full code. If this motivates him to make better life choices, I would encourage him to do so. If he relapses with regard to his alcohol use, he will likely need some more advanced care planning and possibly a palliative referral. ALLERGIES Allergies Allergy/AdvReac Type Severity Reaction Status Date / Time No Known Drug Allergies Allergy Verified 03/31/25 15:46 MEDICATIONS Ambulatory Orders Medication Instructions Recorded Confirmed lactulose 10 gram/15 mL oral 30 g (45 mL) PO QID #6,00 0 mL 04/04/25 solution lidocaine 4 % topical patch 1 patch topical DAILY PRN Back 04/04/25 Pain #30 ea magnesium oxide 400 mg (241.3 mg 400 mg PO DAILYWM #30 tabs 04/04/25 magnesium) tablet vit,calcium 27-ferrous 1 tab PO DAILYWM #30 t abs 04/04/25 fum 60 mg iron-folic acid 1 mg tablet (Trinatal Rx 1) thiamine mononitrate (vit B1) 100 100 mg PO DAILY #30 tabs 04/04/25 mg tablet (Vitamin B-1 (mononitrate)) PHYSICAL EXAM AT DISCHARGE Vital Signs: Vital Signs x48h Temp Pulse Resp BP Pulse Ox 04/04/25 16:45 36.5 C 75 20 121/87 93 LABS 04/04/25 05:30 04/04/25 05:30 DIAGNOSTIC IMAGING Diagnostic Imaging Results: Final report reviewed Diagnostic Imaging Results Comments: CT head 03/31/2025 No acute intracranial pathology Limited abdominal ultrasound 03/31/2025 Severe hepatic steatosis. No ascites Chest x-ray 04/01/2025 No acute cardiopulmonary process FOLLOW UP Follow Up: Needs to establish primary care and get referral to hepatology in the next 2 weeks. TIME SPENT Time Spent in Discharge (Minutes): 42 Discharge Plan Discharge Patient Disposition: 06 Home Health Service Condition: Stable Prescriptions: New magnesium oxide 400 mg (241.3 mg magnesium) Tablet 400 mg PO DAILYWM Qty: 30 0RF Trinatal Rx 1 60 mg iron-1 mg Tablet 1 tab PO DAILYWM Qty: 30 0RF thiamine mononitrate (vit B1) [Vitamin B-1 (mononitrate)] 100 mg Tablet 100 mg PO DAILY Qty: 30 0RF lactulose 10 gram/15 mL Solution 30 g PO QID Qty: 6000 0RF Rx Instructions: Titrate to 3 soft bowel movements daily lidocaine 4 % Adhesive Patch,Medicated 1 patch topical DAILY PRN (Reason: Back Pain) Qty: 30 0RF Discontinued lisinopril 5 MG tablet 5 mg PO DAILY ibuprofen 600 MG tablet 600 mg PO Q6H PRN (Reason: Pain) oxycodone 5 MG tablet 5 mg PO Q4-6H Qty: 20 0RF Rx Instructions: Take 1 tablet by mouth every 4-6 hours as needed for breakthrough pain potassium chloride 20 mEq tablet,ER particles/crystals 20 meq PO BID Qty: 10 2RF metoprolol succinate 50 mg tablet extended release 24 hr 50 mg PO DAILY Qty: 30 2RF diclofenac potassium 50 mg tablet 50 mg PO TID PRN (Reason: pain) Qty: 30 0RF Activity Restrictions: Activity as Tolerated Diet: Low Sodium Health Concerns: You were admitted to the hospital because you experienced alcohol withdrawal after stopping drinking. During your hospitalization, you were also diagnosed with cirrhosis (scarring of the liver) and hepatic encephalopathy (confusion caused by liver disease). You also developed ataxia (difficulty with balance and coordination), which increases your risk of falls. Your New Diagnoses * Cirrhosis: Your liver has developed scarring, most likely from alcohol use. This is a serious condition that requires you to stop drinking alcohol completely and follow up closely with a liver specialist. * Hepatic Encephalopathy: When your liver is not working properly, toxins can build up in your blood and affect your brain, causing confusion, changes in sleep patterns, and difficulty concentrating. This condition can come and go, and it is important to take your medications exactly as prescribed to prevent it from returning. * Ataxia: You have developed problems with balance and walking. This puts you at high risk for falls and injuries. You will receive physical therapy at home to help improve your balance and safety. You must stop drinking alcohol completely. Continuing to drink will worsen your liver disease and can lead to life-threatening complications. Alcohol withdrawal can be dangerous, so if you are struggling with alcohol use, talk to your doctor about treatment options and support programs. Your Medications Lactulose: You have been prescribed lactulose to prevent hepatic encephalopathy from returning. This medication works by helping your body get rid of toxins through bowel movements. * Take lactulose as prescribed (your doctor will tell you the exact dose and timing) * You should have 3 soft bowel movements per day * Side effects: Lactulose can cause bloating, gas, abdominal cramping, and diarrhea. These side effects are normal and show the medication is working. * Important: If you develop severe diarrhea or become dehydrated (very thirsty, dizzy, or urinating less), contact your doctor. Your dose may need to be adjusted. * Do not stop taking lactulose without talking to your doctor first, even if you feel better Thiamine (Vitamin B1) and Multivitamin: You may be prescribed thiamine and a daily multivitamin to help your body recover from the effects of alcohol. Other medications: Take all other medications exactly as prescribed by your doctor. Stop taking: It is important that you not take NSAIDs such as Aleve or ibuprofen. These can be damaging if you are cirrhosis. What You Need to Know About Hepatic Encephalopathy Hepatic encephalopathy can come back, especially if you: * Miss doses of lactulose * Develop an infection * Become dehydrated * Become constipated * Start drinking alcohol again * Take certain medications (especially sedatives or sleeping pills) Early warning signs that hepatic encephalopathy may be returning include: * Increased confusion or forgetfulness * Changes in sleep patterns (sleeping during the day, awake at night) * Personality changes or increased irritability * Difficulty concentrating * Slurred speech If you notice any of these signs, contact your doctor right away or increase your lactulose dose as instructed. Home Health Physical Therapy A physical therapist will visit you at home to help improve your balance, strength, and walking ability. This is very important to prevent falls. To prepare for physical therapy: - Wear comfortable, non-slip shoes - Clear walkways in your home of clutter, loose rugs, and electrical cords - Make sure your home is well-lit - Consider installing grab bars in the bathroom - Use assistive devices (cane, walker) as recommended by your therapist Fall Prevention Because of your balance problems, you are at high risk for falls. To stay safe: - Move slowly when getting up from sitting or lying down - Use handrails on stairs - Avoid walking in the dark - Do not carry heavy items while walking - Ask for help when needed - Avoid alcohol, which worsens balance problems Follow-Up Appointments You must schedule the following appointments: * Liver specialist (sports activities foul judge or rigging loft repairer): Within 4 weeks of leaving the hospital * Primary care doctor: Within 1-2 weeks of leaving the hospital * Home health physical therapy: Should be arranged before you leave the hospital At these appointments, your doctors will: - Check your liver function with blood tests - Make sure your lactulose dose is correct - Discuss treatment options for alcohol use disorder - Monitor your balance and fall risk - Adjust your medications as needed Call 911 or go to the emergency room if you experience: - Severe confusion or inability to wake up - Seizures - Vomiting blood or blood in your stool (may look black and tarry) - Severe abdominal pain or swelling - Yellowing of your skin or eyes (jaundice) - Difficulty breathing - Chest pain - A serious fall with injury Call your doctor (do not wait for your appointment) if you experience: - Increased confusion or personality changes - Fever or signs of infection - Severe diarrhea or dehydration - Worsening balance or new weakness - Tremors, sweating, or anxiety (signs of alcohol withdrawal) Important Reminders - Stop drinking alcohol completely - this is the most important thing you can do for your health - Take lactulose every day as prescribed to prevent confusion from returning - Aim for 2-3 soft bowel movements daily - this shows your lactulose dose is correct - Attend all follow-up appointments - your liver disease requires close monitoring - Complete your home physical therapy - this will help prevent dangerous falls - Ask for help - managing liver disease and staying sober is challenging, and support from family, friends, and healthcare providers is essential Education for Family Members and Caregivers If you live with family or have caregivers, they should know: - How to recognize early signs of returning confusion - The importance of making sure you take lactulose every day - How to help prevent falls in the home - When to call the doctor or seek emergency care - That hepatic encephalopathy can come and go, and this is normal with proper treatment Resources for Alcohol Use Disorder If you need help stopping alcohol use, ask your doctor about: - Addiction medicine specialists - Outpatient treatment programs - Support groups (such as Alcoholic Anonymous) - Medications that can help reduce alcohol cravings Your healthcare team is here to support you. Do not hesitate to reach out with questions or concerns. Print Language: Faroese Patient Instructions: Lactulose, Hepatic Encephalopathy, Understanding Cirrhosis Stand Alone Forms: PCP List Vitals documented within 30 minutes of discharge?: Yes
[2025-04-04] MEDS: LACTULOSE 10 GM /15 ML UDC PO SCH (16:39)
[2025-04-04 17:17] VITALS: BP 121/87; TEMP 97.7; O2SAT 93
== END 2025-04-04 16:55 | disposition home health service (06) | DRG 897 ==
LOC: ED 15:30 → MS2 17:01 → ICU 04-01 15:16 → MS2 04-02 16:17
PROVIDERS: ADMIT Student in an Organized Health Care Education/Training Program; ATTEND Student in an Organized Health Care Education/Training Program
DX: R79.1 Abnormal coagulation profile; E83.42 Hypomagnesemia; K76.82 Hepatic encephalopathy; R26.0 Ataxic gait; I10 Essential (primary) hypertension; K70.30 Alcoholic cirrhosis of liver without ascites; E87.6 Hypokalemia; F10.939 Alcohol use, unspecified with withdrawal, unspecified; K70.10 Alcoholic hepatitis without ascites; Z87.891 Personal history of nicotine dependence; Z87.820 Personal history of traumatic brain injury; D69.6 Thrombocytopenia, unspecified